=== PATIENT | female | born 1945 | race Two or more races ===

== ENCOUNTER 2021-05-01 12:41 | Inpatient (IN) | payer OTHER, MEDICAID ==
[~2021-05-01] VITALS: Ht 152.4 cm; Wt 50.8 kg
[2021-05-01] VITALS (7 sets, daily range): BP systolic 117–146; BP diastolic 66–95
[2021-05-01] MEDS ORDERED: REMDESIVIR PER PHARMACY 0 ML IV SCH ×2 (13:00→17:15)
[2021-05-01] MEDS ORDERED: ZINC SULFATE 220mg CAP or TAB PO ONE (13:00)
[2021-05-01] MEDS ORDERED: methylPREDNISolone SOD SUCC 125 MG/2 ML VL IV ONE (13:00)
[2021-05-01] MEDS ORDERED: CHOLECALCIFEROL (VITD3) 2,000 UNIT CAP/TAB PO ONE (13:00)
[2021-05-01] MEDS ORDERED: AZITHROMYCIN 500MG/ 250ML 250 ML IV ONE (13:00)
[2021-05-01] MEDS ORDERED: ASCORBIC ACID 500 MG TAB PO ONE (13:00)
[2021-05-01] MEDS ORDERED: LORazepam 2MG/ML-1ML VIAL IV ONE (13:45)
[2021-05-01 15:13] LABS: Hematocrit 44.5 % (36.0-46.0); Hemoglobin 14.5 g/dL (12.2-16.2); Mean Corpuscular Hemoglobin 30.7 pg (28.0-32.0); Mean Corpuscular Hgb Conc. 32.7 g/dL (32.0-36.0); Mean Corpuscular Volume 94.1 fL (80.0-100.0); Red Blood Cells 4.73 10^6/uL (4.0-5.20); Red Cell Distribution Width 13.8 % (11.8-14.3)
[2021-05-01 15:19] LABS: Basophils % (manual) 0 (0.0-2.0); Blast Cells 0; Eosinophils % (manual) 0 (0-7); Metamyelocytes % 0; Myelocytes % 0; Promyelocytes % 0; Reactive Lymphocytes 0
[2021-05-01 15:27] LABS: Lactic Acid w/Reflex 2.7 mmol/L (0.4-2.0)
[2021-05-01] MEDS ORDERED: FUROSEMIDE 40 MG/4 ML VIAL IV ONE (15:30)
[2021-05-01 15:51] LABS: Anion Gap 12 (5-15); Blood Urea Nitrogen 14 mg/dL (7-18); Carbon Dioxide 19 mmol/L (21-32); Chloride 103 mmol/L (98-107); Glucose 164 mg/dL (74-106); Potassium 4.1 mmol/L (3.5-5.1); Sodium 134 mmol/L (136-145)
[2021-05-01 15:53] LABS: Alanine Aminotransferase 32 U/L (13-56); Alkaline Phosphatase 84 U/L (45-117); Aspartate Aminotransferase 76 U/L (15-37); BUN/Creatinine Ratio 22.6; Bilirubin, Total 0.7 mg/dL (0.2-1.0); GFR African American 121 mL/min; GFR Non-African American 100 mL/min; Total Protein 7.4 g/dL (6.4-8.2)
[2021-05-01 15:54] LABS: Albumin 2.4 g/dL (3.4-5.0); Magnesium 2.4 mg/dL (1.6-2.6)
[2021-05-01] MEDS ORDERED: ENOXAPARIN SOD 100 MG/1 ML SYRINGE SC ONE (16:00)
[2021-05-01 16:37] LABS: Urine Bacteria NONE SEEN /hpf (None Seen); Urine Blood TRACE /uL (Negative); Urine Mucus FEW (None Seen); Urine Specific Gravity 1.022 (1.001-1.035); Urine WBC 8 /hpf (0 - 5)
[2021-05-01] MEDS ORDERED: HEPARIN SODIUM (PORCINE) 5000 UNITS/ML 1ML VIAL IV ONE (17:15)
[2021-05-01] MEDS ORDERED: DEXTROSE (50%) 50ML SYRG IV PRN (17:15)
[2021-05-01] MEDS ORDERED: NITROGLYCERIN 0.4 MG SL TAB SL PRN (17:15)
[2021-05-01] MEDS ORDERED: ACETAMINOPHEN 500 MG TAB PO PRN (17:15)
[2021-05-01] MEDS ORDERED: DOCUSATE SOD 100 MG CAP PO PRN (17:15)
[2021-05-01] MEDS ORDERED: HEPARIN DRIP/D5W 100UNITS/ML 250 ML IV SCH (17:15)
[2021-05-01] MEDS ORDERED: MORPHINE SULFATE INJECTION 2 MG/ML SYRG IV PRN (17:15)
[2021-05-01] MEDS ORDERED: ONDANSETRON HCL 4 MG/2 ML VIAL IV PRN (17:15)
[2021-05-01] MEDS: SODIUM CHLORIDE 0.9% 1,000 ML IV SCH (17:30)
[2021-05-01] MEDS ORDERED: REMDESIVIR 200 MG in NS 210ml LOADING DOSE ADULT IV ONE (17:30)
[2021-05-01 17:40] LABS: Band Neutrophils % (manual) 2; Lymphocytes % (manual) 18 (10.0-50.0); Monocytes % (manual) 5 (0-12)
[2021-05-01 18:22] LABS: INR 1.24 (0.9-1.15); Partial Thromboplastin Time 26.2 sec (23.6-33.0)
[2021-05-01 20:27] LABS: Magnesium 2.3 mg/dL (1.6-2.6)
[2021-05-01] MEDS: InsuLIN REG 1unit/0.01ml Soln (100units/ml) SC SCH (21:32)
[2021-05-01] MEDS: ACCU-CHEK COMFORT CURVE STRIP VI SCH (21:33)
[2021-05-01] MEDS: BUDESONIDE (INHALATION) 180 MCG IH IN SCH (22:28)
[2021-05-01] MEDS: ALBUTEROL SULF HFA 90MCG INH 200DOSE IN PRN (22:28)
[2021-05-02] VITALS (12 sets, daily range): BP systolic 111–130; BP diastolic 47–65
[2021-05-02 00:52] LABS: Basophils # (auto) 0 10 ^3/uL (0-0.2); Basophils % (auto) 0.3 % (0.0-2.0); Eosinophils # (auto) 0 10 ^3/uL (0-0.8); Hematocrit 41.8 % (36.0-46.0); Hemoglobin 13.7 g/dL (12.2-16.2); Lymphocytes # (auto) 0.6 10 ^3/uL (0.4-5.4); Lymphocytes % (auto) 12.9 % (10.0-50.0); Mean Corpuscular Hemoglobin 31.3 pg (28.0-32.0); Mean Corpuscular Hgb Conc. 32.9 g/dL (32.0-36.0); Mean Corpuscular Volume 95.3 fL (80.0-100.0); Monocytes # (auto) 0.4 10 ^3/uL (0-1.3); Monocytes % (auto) 7.9 % (0.0-12.0); Neutrophils # (auto) 3.9 10 ^3/uL (1.6-8.6); Neutrophils % (auto) 78.9 % (37.0-80.0); Nucleated Red Blood Cells % 2.3 %; Red Blood Cells 4.38 10^6/uL (4.0-5.20); Red Cell Distribution Width 13.8 % (11.8-14.3); White Blood Cell 4.9 10^3/uL (4.4-10.8)
[2021-05-02 01:04] LABS: INR 1.27 (0.9-1.15); Partial Thromboplastin Time 42.9 sec (23.6-33.0)
[2021-05-02] MEDS: InsuLIN REG 1unit/0.01ml Soln (100units/ml) SC SCH ×4 (06:43→22:18)
[2021-05-02] MEDS: ACCU-CHEK COMFORT CURVE STRIP VI SCH ×4 (06:44→22:18)
[2021-05-02 07:54] LABS: Basophils # (auto) 0 10 ^3/uL (0-0.2); Basophils % (auto) 0.2 % (0.0-2.0); Eosinophils # (auto) 0 10 ^3/uL (0-0.8); Hematocrit 41.1 % (36.0-46.0); Hemoglobin 13.7 g/dL (12.2-16.2); Lymphocytes # (auto) 0.9 10 ^3/uL (0.4-5.4); Lymphocytes % (auto) 15.8 % (10.0-50.0); Mean Corpuscular Hemoglobin 31.3 pg (28.0-32.0); Mean Corpuscular Hgb Conc. 33.3 g/dL (32.0-36.0); Monocytes # (auto) 0.4 10 ^3/uL (0-1.3); Monocytes % (auto) 7.6 % (0.0-12.0); Neutrophils # (auto) 4.4 10 ^3/uL (1.6-8.6); Neutrophils % (auto) 76.4 % (37.0-80.0); Red Blood Cells 4.37 10^6/uL (4.0-5.20); White Blood Cell 5.8 10^3/uL (4.4-10.8)
[2021-05-02 08:11] LABS: Albumin 2.2 g/dL (3.4-5.0); Calcium 7.3 mg/dL (8.5-10.1); Potassium 3.8 mmol/L (3.5-5.1)
[2021-05-02 08:12] LABS: INR 1.3 (0.9-1.15)
[2021-05-02 08:15] LABS: BUN/Creatinine Ratio 29.1; Bilirubin, Total 0.5 mg/dL (0.2-1.0)
[2021-05-02] MEDS: ALBUTEROL SULF HFA 90MCG INH 200DOSE IN PRN ×2 (09:43→18:33)
[2021-05-02] MEDS: BUDESONIDE (INHALATION) 180 MCG IH IN SCH ×2 (09:44→18:33)
[2021-05-02] MEDS: SODIUM CHLORIDE 0.9% 1,000 ML IV SCH (10:31)
[2021-05-02] MEDS: DexAMETHasone SOD PHOS 10MG/1ML VIAL INJ IV SCH (10:31)
[2021-05-02] MEDS: ASCORBIC ACID 1,000 MG TAB PO SCH (10:32)
[2021-05-02] MEDS: ZINC SULFATE 220mg CAP or TAB PO SCH (10:32)
[2021-05-02] MEDS: AZITHROMYCIN 500MG/ 250ML 250 ML IV SCH (10:32)
[2021-05-02] MEDS: CHOLECALCIFEROL (VITD3) 2,000 UNIT CAP/TAB PO SCH (10:32)
[2021-05-02] MEDS ORDERED: ENOXAPARIN SOD 100 MG/1 ML SYRINGE SC ONE (11:30)
[2021-05-02] MEDS ORDERED: FUROSEMIDE 40 MG/4 ML VIAL IV ONE (11:30)
[2021-05-02] MEDS ORDERED: ENOXAPARIN SOD 60 MG/0.6 ML SYRINGE SC ONE (11:45)
[2021-05-02 12:16] LABS: Thyroid Stimulating Hormone 0.36 uIU/mL (0.358-3.74)
[2021-05-02 12:29] LABS: Cholesterol 153 mg/dL (< 200)
[2021-05-02 12:30] LABS: HDL Cholesterol 39 mg/dL (40-59); LDL Cholesterol 94 mg/dL (< 100); Triglycerides 121 mg/dL (< 150)
[2021-05-02] MEDS: REMDESIVIR 100mg 100 MG in SODIUM CHL 0.9% 230 ML IV SCH (17:15)
[2021-05-02] MEDS: FUROSEMIDE 40 MG/4 ML VIAL IV SCH (18:16)
[2021-05-02] MEDS: ENOXAPARIN SOD 60 MG/0.6 ML SYRINGE SC SCH (22:18)
[2021-05-03 00:12] VITALS: BP 99/44
[2021-05-03] MEDS: ACETAMINOPHEN 325 MG TAB PO PRN (00:49)
[2021-05-03 02:18] VITALS: BP 112/52
[2021-05-03 04:04] VITALS: BP 111/39
[2021-05-03] MEDS: ACCU-CHEK COMFORT CURVE STRIP VI SCH ×4 (06:39→22:30)
[2021-05-03] MEDS: FUROSEMIDE 40 MG/4 ML VIAL IV SCH ×2 (06:40→17:54)
[2021-05-03] MEDS: InsuLIN REG 1unit/0.01ml Soln (100units/ml) SC SCH ×4 (06:40→22:38)
[2021-05-03 07:11] LABS: Potassium 3.3 mmol/L (3.5-5.1)
[2021-05-03 07:18] LABS: Albumin 2.6 g/dL (3.4-5.0); Bilirubin, Total 0.6 mg/dL (0.2-1.0); Calcium 7.8 mg/dL (8.5-10.1); Total Protein 6.5 g/dL (6.4-8.2)
[2021-05-03] MEDS ORDERED: POTASSIUM CHLORIDE 40 MEQ, LIDOCAINE 1% (LOCAL ANESTH.) 4 ML in SODIUM CHL 0.9% 250 ML IV ONE (08:30)
[2021-05-03] MEDS: ALBUTEROL SULF HFA 90MCG INH 200DOSE IN PRN ×2 (08:57→18:35)
[2021-05-03] MEDS: BUDESONIDE (INHALATION) 180 MCG IH IN SCH ×2 (08:57→18:35)
[2021-05-03] MEDS: DexAMETHasone SOD PHOS 10MG/1ML VIAL INJ IV SCH (10:23)
[2021-05-03] MEDS: ZINC SULFATE 220mg CAP or TAB PO SCH (10:24)
[2021-05-03] MEDS: ASCORBIC ACID 1,000 MG TAB PO SCH (10:24)
[2021-05-03] MEDS: ENOXAPARIN SOD 60 MG/0.6 ML SYRINGE SC SCH ×2 (10:25→22:38)
[2021-05-03] MEDS: CHOLECALCIFEROL (VITD3) 2,000 UNIT CAP/TAB PO SCH (10:25)
[2021-05-03] MEDS: AZITHROMYCIN 500MG/ 250ML 250 ML IV SCH (10:27)
[2021-05-03] MEDS: REMDESIVIR 100mg 100 MG in SODIUM CHL 0.9% 230 ML IV SCH (15:41)
[2021-05-04] MEDS: ACCU-CHEK COMFORT CURVE STRIP VI SCH ×4 (06:49→21:48)
[2021-05-04] MEDS: InsuLIN REG 1unit/0.01ml Soln (100units/ml) SC SCH ×4 (06:56→22:01)
[2021-05-04] MEDS: ALBUTEROL SULF HFA 90MCG INH 200DOSE IN PRN ×2 (07:03→23:09)
[2021-05-04] MEDS: BUDESONIDE (INHALATION) 180 MCG IH IN SCH ×2 (07:04→22:00)
[2021-05-04] MEDS: FUROSEMIDE 40 MG/4 ML VIAL IV SCH (07:04)
[2021-05-04 08:12] LABS: Eosinophils # (auto) 0 10 ^3/uL (0-0.8); Hemoglobin 17.9 g/dL (12.2-16.2); Nucleated Red Blood Cells % 0.4 %; White Blood Cell 8.7 10^3/uL (4.4-10.8)
[2021-05-04 08:14] LABS: Basophils # (auto) 0 10 ^3/uL (0-0.2); Basophils % (auto) 0.5 % (0.0-2.0); Eosinophils % (auto) 0.1 % (0.0-7.0); Hematocrit 53.6 % (36.0-46.0); Lymphocytes # (auto) 0.7 10 ^3/uL (0.4-5.4); Lymphocytes % (auto) 8.3 % (10.0-50.0); Mean Corpuscular Hemoglobin 31.4 pg (28.0-32.0); Mean Corpuscular Hgb Conc. 33.4 g/dL (32.0-36.0); Monocytes # (auto) 0.4 10 ^3/uL (0-1.3); Monocytes % (auto) 4.2 % (0.0-12.0); Neutrophils # (auto) 7.5 10 ^3/uL (1.6-8.6); Neutrophils % (auto) 86.9 % (37.0-80.0); Red Cell Distribution Width 14.1 % (11.8-14.3)
[2021-05-04 08:24] LABS: Albumin 2.9 g/dL (3.4-5.0); Magnesium 3.5 mg/dL (1.6-2.6); Potassium 3.8 mmol/L (3.5-5.1)
[2021-05-04 08:27] LABS: BUN/Creatinine Ratio 27.5; Total Protein 8.2 g/dL (6.4-8.2)
[2021-05-04 09:00] VITALS: BP 106/53
[2021-05-04] MEDS: ZINC SULFATE 220mg CAP or TAB PO SCH (10:00)
[2021-05-04] MEDS: ASCORBIC ACID 1,000 MG TAB PO SCH (10:00)
[2021-05-04] MEDS: CHOLECALCIFEROL (VITD3) 2,000 UNIT CAP/TAB PO SCH (10:00)
[2021-05-04] MEDS: AZITHROMYCIN 500MG/ 250ML 250 ML IV SCH (10:00)
[2021-05-04] MEDS: ENOXAPARIN SOD 60 MG/0.6 ML SYRINGE SC SCH ×2 (10:00→21:58)
[2021-05-04] MEDS: DexAMETHasone SOD PHOS 10MG/1ML VIAL INJ IV SCH (10:00)
[2021-05-04] MEDS: REMDESIVIR 100mg 100 MG in SODIUM CHL 0.9% 230 ML IV SCH (15:27)
[2021-05-04] MEDS ORDERED: CEFTRIAXONE SODIUM 2 GM in D5W 5% 50 ML IV ONE (15:30)
[2021-05-04] MEDS: FUROSEMIDE 20 MG/2 ML VIAL IV SCH (18:00)
[2021-05-05] MEDS: ACETAMINOPHEN 325 MG TAB PO PRN (01:50)
[2021-05-05] MEDS: FUROSEMIDE 20 MG/2 ML VIAL IV SCH ×2 (06:18→18:00)
[2021-05-05] MEDS: ACCU-CHEK COMFORT CURVE STRIP VI SCH ×4 (06:22→22:11)
[2021-05-05] MEDS: InsuLIN REG 1unit/0.01ml Soln (100units/ml) SC SCH ×4 (06:24→22:56)
[2021-05-05 06:31] LABS: Basophils # (auto) 0 10 ^3/uL (0-0.2); Eosinophils # (auto) 0 10 ^3/uL (0-0.8); Eosinophils % (auto) 0.1 % (0.0-7.0); Lymphocytes # (auto) 0.8 10 ^3/uL (0.4-5.4); Mean Corpuscular Hemoglobin 30.6 pg (28.0-32.0)
[2021-05-05 06:33] LABS: Basophils % (auto) 0.5 % (0.0-2.0); Hematocrit 52.5 % (36.0-46.0); Hemoglobin 17.1 g/dL (12.2-16.2); Lymphocytes % (auto) 10.1 % (10.0-50.0); Mean Corpuscular Hgb Conc. 32.5 g/dL (32.0-36.0); Monocytes # (auto) 0.5 10 ^3/uL (0-1.3); Monocytes % (auto) 7.2 % (0.0-12.0); Neutrophils # (auto) 6.2 10 ^3/uL (1.6-8.6); Neutrophils % (auto) 82.1 % (37.0-80.0); Nucleated Red Blood Cells % 0.1 %; Red Blood Cells 5.59 10^6/uL (4.0-5.20); Red Cell Distribution Width 14.4 % (11.8-14.3); White Blood Cell 7.5 10^3/uL (4.4-10.8)
[2021-05-05 06:49] LABS: Albumin 2.8 g/dL (3.4-5.0); Potassium 3.5 mmol/L (3.5-5.1)
[2021-05-05 06:53] LABS: BUN/Creatinine Ratio 33.7; Bilirubin, Total 0.6 mg/dL (0.2-1.0); Total Protein 7.3 g/dL (6.4-8.2)
[2021-05-05] MEDS: ALBUTEROL SULF HFA 90MCG INH 200DOSE IN PRN (06:56)
[2021-05-05] MEDS: BUDESONIDE (INHALATION) 180 MCG IH IN SCH ×2 (06:57→22:00)
[2021-05-05] MEDS: cefTRIAXone 1GM/50ML D5W 50 ML IV SCH (09:00)
[2021-05-05] MEDS: AZITHROMYCIN 500MG/ 250ML 250 ML IV SCH (10:00)
[2021-05-05] MEDS: ENOXAPARIN SOD 60 MG/0.6 ML SYRINGE SC SCH ×2 (10:00→22:12)
[2021-05-05] MEDS: ZINC SULFATE 220mg CAP or TAB PO SCH (10:00)
[2021-05-05] MEDS: CHOLECALCIFEROL (VITD3) 2,000 UNIT CAP/TAB PO SCH (10:00)
[2021-05-05] MEDS: DexAMETHasone SOD PHOS 10MG/1ML VIAL INJ IV SCH (10:00)
[2021-05-05] MEDS: ASCORBIC ACID 1,000 MG TAB PO SCH (10:00)
[2021-05-05 15:18] VITALS: BP 111/75
[2021-05-05] MEDS: REMDESIVIR 100mg 100 MG in SODIUM CHL 0.9% 230 ML IV SCH (16:00)
[2021-05-05 17:00] VITALS: BP 96/58
[2021-05-05] MEDS ORDERED: POTASSIUM CHL 20 Meq TABLET PO ONE (17:30)
[2021-05-05 20:00] VITALS: BP 96/60
[2021-05-05 22:50] VITALS: BP 96/60
[2021-05-06 05:19] VITALS: BP 105/64
[2021-05-06] MEDS: ACCU-CHEK COMFORT CURVE STRIP VI SCH ×4 (06:14→22:06)
[2021-05-06] MEDS: InsuLIN REG 1unit/0.01ml Soln (100units/ml) SC SCH ×4 (06:15→22:10)
[2021-05-06] MEDS: FUROSEMIDE 20 MG/2 ML VIAL IV SCH ×2 (06:30→18:00)
[2021-05-06 09:00] VITALS: BP 110/69
[2021-05-06] MEDS: BUDESONIDE (INHALATION) 180 MCG IH IN SCH ×2 (09:34→18:45)
[2021-05-06] MEDS: ALBUTEROL SULF HFA 90MCG INH 200DOSE IN PRN ×2 (09:34→19:57)
[2021-05-06] MEDS: cefTRIAXone 1GM/50ML D5W 50 ML IV SCH (10:17)
[2021-05-06] MEDS: AZITHROMYCIN 500MG/ 250ML 250 ML IV SCH (10:17)
[2021-05-06] MEDS: ZINC SULFATE 220mg CAP or TAB PO SCH (10:17)
[2021-05-06] MEDS: DexAMETHasone SOD PHOS 10MG/1ML VIAL INJ IV SCH (10:17)
[2021-05-06] MEDS: ASCORBIC ACID 1,000 MG TAB PO SCH (10:18)
[2021-05-06] MEDS: CHOLECALCIFEROL (VITD3) 2,000 UNIT CAP/TAB PO SCH (10:18)
[2021-05-06] MEDS: ENOXAPARIN SOD 60 MG/0.6 ML SYRINGE SC SCH ×2 (10:18→22:06)
[2021-05-06 13:00] VITALS: BP 103/68
[2021-05-06] MEDS ORDERED: ADENOSINE 6 MG/2 ML INJ IV ONE ×3 (14:00→18:09)
[2021-05-06 15:59] LABS: Potassium 3.7 mmol/L (3.5-5.1)
[2021-05-06 16:01] LABS: Magnesium 2.6 mg/dL (1.6-2.6)
[2021-05-06 16:05] LABS: BUN/Creatinine Ratio 26.2; Calcium 8.2 mg/dL (8.5-10.1); Magnesium 2.8 mg/dL (1.6-2.6); Potassium 3.5 mmol/L (3.5-5.1)
[2021-05-06 17:00] VITALS: BP 104/55
[2021-05-06 22:00] VITALS: BP 109/73
[2021-05-07] MEDS: ACETAMINOPHEN 325 MG TAB PO PRN ×2 (03:53→20:38)
[2021-05-07 05:00] VITALS: BP 124/76
[2021-05-07] MEDS: ACCU-CHEK COMFORT CURVE STRIP VI SCH ×4 (06:46→22:12)
[2021-05-07] MEDS: FUROSEMIDE 20 MG/2 ML VIAL IV SCH ×2 (06:47→17:11)
[2021-05-07] MEDS: InsuLIN REG 1unit/0.01ml Soln (100units/ml) SC SCH ×4 (06:47→22:10)
[2021-05-07 07:03] LABS: Potassium 3.7 mmol/L (3.5-5.1)
[2021-05-07 07:09] LABS: BUN/Creatinine Ratio 52.8; Calcium 8.8 mg/dL (8.5-10.1); Magnesium 2.8 mg/dL (1.6-2.6)
[2021-05-07 09:00] VITALS: BP 102/58
[2021-05-07] MEDS: ALBUTEROL SULF HFA 90MCG INH 200DOSE IN PRN (09:13)
[2021-05-07] MEDS: BUDESONIDE (INHALATION) 180 MCG IH IN SCH ×2 (09:13→22:11)
[2021-05-07] MEDS: ZINC SULFATE 220mg CAP or TAB PO SCH (10:13)
[2021-05-07] MEDS: CHOLECALCIFEROL (VITD3) 2,000 UNIT CAP/TAB PO SCH (10:13)
[2021-05-07] MEDS: ASCORBIC ACID 1,000 MG TAB PO SCH (10:13)
[2021-05-07] MEDS: DexAMETHasone SOD PHOS 10MG/1ML VIAL INJ IV SCH (10:13)
[2021-05-07] MEDS: ENOXAPARIN SOD 60 MG/0.6 ML SYRINGE SC SCH ×2 (10:14→22:11)
[2021-05-07] MEDS: cefTRIAXone 1GM/50ML D5W 50 ML IV SCH (10:26)
[2021-05-07] MEDS ORDERED: ADENOSINE 6 MG/2 ML INJ IV ONE (13:15)
[2021-05-07] MEDS ORDERED: AMIODARONE HCL 200 MG TAB PO ONE (14:30)
[2021-05-07 14:56] VITALS: BP 102/58
[2021-05-07 16:53] VITALS: BP 93/51
[2021-05-07 22:00] VITALS: BP 97/54
[2021-05-07] MEDS: AMIODARONE HCL 200 MG TAB PO SCH (22:12)
[2021-05-08] MEDS: ACCU-CHEK COMFORT CURVE STRIP VI SCH ×4 (06:36→21:13)
[2021-05-08] MEDS: InsuLIN REG 1unit/0.01ml Soln (100units/ml) SC SCH ×4 (06:38→21:16)
[2021-05-08] MEDS: FUROSEMIDE 20 MG/2 ML VIAL IV SCH ×2 (06:44→18:00)
[2021-05-08] MEDS: ALBUTEROL SULF HFA 90MCG INH 200DOSE IN PRN (06:53)
[2021-05-08] MEDS: BUDESONIDE (INHALATION) 180 MCG IH IN SCH ×2 (06:53→22:00)
[2021-05-08 09:00] VITALS: BP 98/48
[2021-05-08] MEDS: cefTRIAXone 1GM/50ML D5W 50 ML IV SCH (09:23)
[2021-05-08] MEDS: DexAMETHasone SOD PHOS 10MG/1ML VIAL INJ IV SCH (09:23)
[2021-05-08] MEDS: ASCORBIC ACID 1,000 MG TAB PO SCH (09:25)
[2021-05-08] MEDS: ZINC SULFATE 220mg CAP or TAB PO SCH (09:25)
[2021-05-08] MEDS: AMIODARONE HCL 200 MG TAB PO SCH ×2 (09:25→21:24)
[2021-05-08] MEDS: ENOXAPARIN SOD 60 MG/0.6 ML SYRINGE SC SCH ×2 (09:26→21:23)
[2021-05-08] MEDS: CHOLECALCIFEROL (VITD3) 2,000 UNIT CAP/TAB PO SCH (09:26)
[2021-05-08 13:00] VITALS: BP 97/41
[2021-05-08 17:00] VITALS: BP 97/47
[2021-05-08] MEDS ORDERED: POTASSIUM EFFERVESENT TAB 25 MEQ PO ONE (17:45)
[2021-05-08] MEDS: ACETAMINOPHEN 325 MG TAB PO PRN (21:24)
[2021-05-08 22:13] VITALS: BP 97/52
[2021-05-09] MEDS: ACETAMINOPHEN 325 MG TAB PO PRN ×3 (04:21→21:29)
[2021-05-09 05:18] VITALS: BP 96/59
[2021-05-09] MEDS: FUROSEMIDE 20 MG/2 ML VIAL IV SCH (06:00)
[2021-05-09] MEDS: ALBUTEROL SULF HFA 90MCG INH 200DOSE IN PRN ×2 (06:03→18:49)
[2021-05-09] MEDS: BUDESONIDE (INHALATION) 180 MCG IH IN SCH ×2 (06:03→18:48)
[2021-05-09 06:07] LABS: Basophils # (auto) 0 10 ^3/uL (0-0.2); Basophils % (auto) 0.2 % (0.0-2.0); Eosinophils # (auto) 0 10 ^3/uL (0-0.8); Eosinophils % (auto) 0.2 % (0.0-7.0); Hematocrit 43.2 % (36.0-46.0); Hemoglobin 14.1 g/dL (12.2-16.2); Lymphocytes # (auto) 0.6 10 ^3/uL (0.4-5.4); Lymphocytes % (auto) 8.9 % (10.0-50.0); Mean Corpuscular Hemoglobin 30.8 pg (28.0-32.0); Mean Corpuscular Hgb Conc. 32.7 g/dL (32.0-36.0); Monocytes # (auto) 0.6 10 ^3/uL (0-1.3); Monocytes % (auto) 8.4 % (0.0-12.0); Neutrophils # (auto) 5.5 10 ^3/uL (1.6-8.6); Neutrophils % (auto) 82.3 % (37.0-80.0); Nucleated Red Blood Cells % 0.1 %; Red Cell Distribution Width 13.9 % (11.8-14.3); White Blood Cell 6.7 10^3/uL (4.4-10.8)
[2021-05-09 06:26] LABS: Potassium 4.2 mmol/L (3.5-5.1)
[2021-05-09 06:34] LABS: Albumin 2.1 g/dL (3.4-5.0); BUN/Creatinine Ratio 43.9; Calcium 8.3 mg/dL (8.5-10.1)
[2021-05-09] MEDS: ACCU-CHEK COMFORT CURVE STRIP VI SCH ×4 (06:37→21:20)
[2021-05-09 06:38] LABS: Bilirubin, Total 0.5 mg/dL (0.2-1.0); Total Protein 5.4 g/dL (6.4-8.2)
[2021-05-09] MEDS: InsuLIN REG 1unit/0.01ml Soln (100units/ml) SC SCH ×4 (06:39→21:22)
[2021-05-09 08:00] VITALS: BP 117/57
[2021-05-09] MEDS: cefTRIAXone 1GM/50ML D5W 50 ML IV SCH (09:54)
[2021-05-09] MEDS: POTASSIUM EFFERVESENT TAB 25 MEQ PO SCH (09:55)
[2021-05-09] MEDS: ZINC SULFATE 220mg CAP or TAB PO SCH (09:55)
[2021-05-09] MEDS: DexAMETHasone SOD PHOS 10MG/1ML VIAL INJ IV SCH (09:55)
[2021-05-09] MEDS: AMIODARONE HCL 200 MG TAB PO SCH ×2 (09:55→21:03)
[2021-05-09] MEDS: CHOLECALCIFEROL (VITD3) 2,000 UNIT CAP/TAB PO SCH (09:56)
[2021-05-09] MEDS: ENOXAPARIN SOD 60 MG/0.6 ML SYRINGE SC SCH ×2 (09:56→21:03)
[2021-05-09] MEDS: ASCORBIC ACID 1,000 MG TAB PO SCH (09:56)
[2021-05-09 12:00] VITALS: BP 108/48
[2021-05-09 16:14] VITALS: BP 101/51
[2021-05-09 22:00] VITALS: BP 107/51
[2021-05-10] MEDS: MORPHINE SULFATE INJECTION 2 MG/ML SYRG IV PRN ×2 (01:04→15:44)
[2021-05-10] MEDS: ACETAMINOPHEN 325 MG TAB PO PRN (03:23)
[2021-05-10 05:00] VITALS: BP 102/37
[2021-05-10] MEDS: BUDESONIDE (INHALATION) 180 MCG IH IN SCH ×2 (05:27→18:00)
[2021-05-10] MEDS: ALBUTEROL SULF HFA 90MCG INH 200DOSE IN PRN ×2 (05:27→19:04)
[2021-05-10] MEDS: ACCU-CHEK COMFORT CURVE STRIP VI SCH ×4 (06:42→21:39)
[2021-05-10] MEDS: InsuLIN REG 1unit/0.01ml Soln (100units/ml) SC SCH ×4 (06:43→21:47)
[2021-05-10 09:00] VITALS: BP 101/47
[2021-05-10] MEDS: DexAMETHasone SOD PHOS 10MG/1ML VIAL INJ IV SCH (11:43)
[2021-05-10] MEDS: cefTRIAXone 1GM/50ML D5W 50 ML IV SCH (11:43)
[2021-05-10] MEDS: Glucerna Carbsteady SHAKE Vanilla 8oz PO SCH ×2 (11:43→18:31)
[2021-05-10] MEDS: AMIODARONE HCL 200 MG TAB PO SCH ×2 (11:44→21:39)
[2021-05-10] MEDS: ZINC SULFATE 220mg CAP or TAB PO SCH (11:44)
[2021-05-10] MEDS: FUROSEMIDE 20 MG/2 ML VIAL IV SCH (11:44)
[2021-05-10] MEDS: CHOLECALCIFEROL (VITD3) 2,000 UNIT CAP/TAB PO SCH (11:45)
[2021-05-10] MEDS: POTASSIUM EFFERVESENT TAB 25 MEQ PO SCH (11:45)
[2021-05-10] MEDS: ASCORBIC ACID 1,000 MG TAB PO SCH (11:45)
[2021-05-10] MEDS: ENOXAPARIN SOD 60 MG/0.6 ML SYRINGE SC SCH (11:45)
[2021-05-10 13:00] VITALS: BP 99/56
[2021-05-10 16:30] VITALS: BP 107/51
[2021-05-10 20:00] VITALS: BP 104/49
[2021-05-10] MEDS: APIXABAN 5 MG TAB PO SCH (21:39)
[2021-05-10] MEDS: HYDROcodone-ACET 5/325MG TAB PO PRN (21:40)
[2021-05-10] MEDS: INSULIN LANTUS (GLARGINE) 1 /0.01ml (100units/ml) SC SCH (21:47)
[2021-05-11 05:00] VITALS: BP 112/34
[2021-05-11] MEDS: ALBUTEROL SULF HFA 90MCG INH 200DOSE IN PRN ×2 (05:46→23:23)
[2021-05-11] MEDS: BUDESONIDE (INHALATION) 180 MCG IH IN SCH ×2 (05:46→22:00)
[2021-05-11] MEDS: ACCU-CHEK COMFORT CURVE STRIP VI SCH ×4 (06:25→22:00)
[2021-05-11] MEDS: ACETAMINOPHEN 325 MG TAB PO PRN ×2 (06:25→12:06)
[2021-05-11] MEDS: InsuLIN REG 1unit/0.01ml Soln (100units/ml) SC SCH ×4 (06:25→22:00)
[2021-05-11 08:51] VITALS: BP 104/39
[2021-05-11] MEDS: Glucerna Carbsteady SHAKE Vanilla 8oz PO SCH ×2 (09:50→18:22)
[2021-05-11] MEDS: DexAMETHasone SOD PHOS 10MG/1ML VIAL INJ IV SCH (09:51)
[2021-05-11] MEDS: cefTRIAXone 1GM/50ML D5W 50 ML IV SCH (09:51)
[2021-05-11] MEDS: FUROSEMIDE 20 MG/2 ML VIAL IV SCH (09:53)
[2021-05-11] MEDS: AMIODARONE HCL 200 MG TAB PO SCH ×2 (09:53→22:51)
[2021-05-11] MEDS: POTASSIUM EFFERVESENT TAB 25 MEQ PO SCH (09:53)
[2021-05-11] MEDS: ZINC SULFATE 220mg CAP or TAB PO SCH (09:53)
[2021-05-11] MEDS: APIXABAN 5 MG TAB PO SCH ×2 (09:53→22:51)
[2021-05-11] MEDS: CHOLECALCIFEROL (VITD3) 2,000 UNIT CAP/TAB PO SCH (09:54)
[2021-05-11] MEDS: ASCORBIC ACID 1,000 MG TAB PO SCH (09:54)
[2021-05-11] MEDS ORDERED: IOHEXOL 350 MG/ML 100ML IJ ONE (11:15)
[2021-05-11 13:20] VITALS: BP_SYST 105; BP_DIAS 35; BP_DIAS 36
[2021-05-11 16:23] VITALS: BP 121/40
[2021-05-11 22:00] VITALS: BP 144/45
[2021-05-11] MEDS: INSULIN LANTUS (GLARGINE) 1 /0.01ml (100units/ml) SC SCH (22:00)
[2021-05-12 05:00] VITALS: BP 105/51
[2021-05-12] MEDS: ACCU-CHEK COMFORT CURVE STRIP VI SCH ×4 (06:17→21:28)
[2021-05-12] MEDS: InsuLIN REG 1unit/0.01ml Soln (100units/ml) SC SCH ×4 (06:35→21:38)
[2021-05-12] MEDS: ALBUTEROL SULF HFA 90MCG INH 200DOSE IN PRN ×2 (07:09→18:53)
[2021-05-12] MEDS: BUDESONIDE (INHALATION) 180 MCG IH IN SCH ×2 (07:09→18:53)
[2021-05-12 07:25] LABS: Potassium 4.6 mmol/L (3.5-5.1)
[2021-05-12 07:32] LABS: Albumin 2.2 g/dL (3.4-5.0); BUN/Creatinine Ratio 55.6; Bilirubin, Total 0.5 mg/dL (0.2-1.0); CRP High Sensitivity 0.26 mg/dL (< 0.3); Total Protein 5.1 g/dL (6.4-8.2)
[2021-05-12] MEDS: Glucerna Carbsteady SHAKE Vanilla 8oz PO SCH ×2 (08:05→17:32)
[2021-05-12 08:15] VITALS: BP 91/42
[2021-05-12] MEDS: cefTRIAXone 1GM/50ML D5W 50 ML IV SCH (09:42)
[2021-05-12] MEDS: FUROSEMIDE 20 MG/2 ML VIAL IV SCH (10:00)
[2021-05-12] MEDS: AMIODARONE HCL 200 MG TAB PO SCH (10:00)
[2021-05-12] MEDS: APIXABAN 5 MG TAB PO SCH ×2 (10:03→21:28)
[2021-05-12] MEDS: DexAMETHasone SOD PHOS 10MG/1ML VIAL INJ IV SCH (10:03)
[2021-05-12] MEDS: ZINC SULFATE 220mg CAP or TAB PO SCH (10:03)
[2021-05-12] MEDS: POTASSIUM EFFERVESENT TAB 25 MEQ PO SCH (10:04)
[2021-05-12] MEDS: CHOLECALCIFEROL (VITD3) 2,000 UNIT CAP/TAB PO SCH (10:04)
[2021-05-12] MEDS: ASCORBIC ACID 1,000 MG TAB PO SCH (10:04)
[2021-05-12 17:28] VITALS: BP 101/42
[2021-05-12 20:23] VITALS: BP 91/42
[2021-05-12] MEDS: INSULIN LANTUS (GLARGINE) 1 /0.01ml (100units/ml) SC SCH (21:38)
[2021-05-12 22:00] VITALS: BP 94/42
[2021-05-13 05:00] VITALS: BP 95/40
[2021-05-13] MEDS: BUDESONIDE (INHALATION) 180 MCG IH IN SCH ×2 (06:12→18:51)
[2021-05-13] MEDS: ALBUTEROL SULF HFA 90MCG INH 200DOSE IN PRN ×2 (06:12→18:51)
[2021-05-13] MEDS: InsuLIN REG 1unit/0.01ml Soln (100units/ml) SC SCH ×4 (06:26→23:36)
[2021-05-13] MEDS: ACCU-CHEK COMFORT CURVE STRIP VI SCH ×4 (06:26→22:20)
[2021-05-13] MEDS: Glucerna Carbsteady SHAKE Vanilla 8oz PO SCH ×2 (08:01→17:57)
[2021-05-13 08:15] VITALS: BP 107/41
[2021-05-13] MEDS: cefTRIAXone 1GM/50ML D5W 50 ML IV SCH (08:32)
[2021-05-13 09:00] VITALS: BP 107/41
[2021-05-13] MEDS: FUROSEMIDE 20 MG/2 ML VIAL IV SCH (10:00)
[2021-05-13] MEDS: DexAMETHasone SOD PHOS 10MG/1ML VIAL INJ IV SCH (10:21)
[2021-05-13] MEDS: ASCORBIC ACID 1,000 MG TAB PO SCH (10:22)
[2021-05-13] MEDS: APIXABAN 5 MG TAB PO SCH ×2 (10:22→22:20)
[2021-05-13] MEDS: CHOLECALCIFEROL (VITD3) 2,000 UNIT CAP/TAB PO SCH (10:22)
[2021-05-13] MEDS: POTASSIUM EFFERVESENT TAB 25 MEQ PO SCH (10:22)
[2021-05-13] MEDS: ZINC SULFATE 220mg CAP or TAB PO SCH (10:22)
[2021-05-13] MEDS ORDERED: SODIUM CHLORIDE 0.9% 250 ML IV ONE (10:30)
[2021-05-13 13:00] VITALS: BP 91/44
[2021-05-13 17:00] VITALS: BP 98/38
[2021-05-13 22:00] VITALS: BP 92/41
[2021-05-13] MEDS: INSULIN LANTUS (GLARGINE) 1 /0.01ml (100units/ml) SC SCH (23:35)
[2021-05-14] VITALS (7 sets, daily range): BP systolic 88–108; BP diastolic 36–51
[2021-05-14] MEDS: BUDESONIDE (INHALATION) 180 MCG IH IN SCH ×2 (06:29→21:19)
[2021-05-14] MEDS: InsuLIN REG 1unit/0.01ml Soln (100units/ml) SC SCH ×4 (06:35→21:18)
[2021-05-14] MEDS: ACCU-CHEK COMFORT CURVE STRIP VI SCH ×4 (06:35→21:14)
[2021-05-14] MEDS: Glucerna Carbsteady SHAKE Vanilla 8oz PO SCH ×2 (07:49→17:40)
[2021-05-14] MEDS: cefTRIAXone 1GM/50ML D5W 50 ML IV SCH (09:31)
[2021-05-14] MEDS: FUROSEMIDE 20 MG/2 ML VIAL IV SCH (10:00)
[2021-05-14] MEDS: DexAMETHasone SOD PHOS 10MG/1ML VIAL INJ IV SCH (10:06)
[2021-05-14] MEDS: ASCORBIC ACID 1,000 MG TAB PO SCH (10:07)
[2021-05-14] MEDS: ZINC SULFATE 220mg CAP or TAB PO SCH (10:07)
[2021-05-14] MEDS: APIXABAN 5 MG TAB PO SCH ×2 (10:07→21:13)
[2021-05-14] MEDS: POTASSIUM EFFERVESENT TAB 25 MEQ PO SCH (10:07)
[2021-05-14] MEDS: CHOLECALCIFEROL (VITD3) 2,000 UNIT CAP/TAB PO SCH (10:07)
[2021-05-14] MEDS ORDERED: MIDODRINE HCL 10 MG TAB PO ONE (11:30)
[2021-05-14] MEDS: MIDODRINE HCL 10 MG TAB PO SCH (17:41)
[2021-05-14] MEDS ORDERED: SODIUM CHLORIDE 0.9% 250 ML IV ONE (18:00)
[2021-05-14] MEDS: HYDROcodone-ACET 5/325MG TAB PO PRN (21:14)
[2021-05-14] MEDS: ALBUTEROL SULF HFA 90MCG INH 200DOSE IN PRN (21:19)
[2021-05-14] MEDS: INSULIN LANTUS (GLARGINE) 1 /0.01ml (100units/ml) SC SCH (21:20)
[2021-05-15] VITALS (7 sets, daily range): BP systolic 91–104; BP diastolic 31–40
[2021-05-15] MEDS ORDERED: SODIUM CHLORIDE 0.9% 500 ML IV ONE (04:30)
[2021-05-15] MEDS: ALBUTEROL SULF HFA 90MCG INH 200DOSE IN PRN ×2 (06:05→21:54)
[2021-05-15] MEDS: BUDESONIDE (INHALATION) 180 MCG IH IN SCH ×2 (06:05→21:54)
[2021-05-15] MEDS: InsuLIN REG 1unit/0.01ml Soln (100units/ml) SC SCH ×4 (06:18→21:33)
[2021-05-15] MEDS: ACCU-CHEK COMFORT CURVE STRIP VI SCH ×4 (06:18→21:34)
[2021-05-15] MEDS: MIDODRINE HCL 10 MG TAB PO SCH ×3 (06:18→17:29)
[2021-05-15] MEDS: Glucerna Carbsteady SHAKE Vanilla 8oz PO SCH ×2 (08:15→17:28)
[2021-05-15] MEDS: cefTRIAXone 1GM/50ML D5W 50 ML IV SCH (08:44)
[2021-05-15] MEDS: FUROSEMIDE 20 MG/2 ML VIAL IV SCH (09:51)
[2021-05-15] MEDS: DexAMETHasone SOD PHOS 10MG/1ML VIAL INJ IV SCH (09:51)
[2021-05-15] MEDS: APIXABAN 5 MG TAB PO SCH ×2 (09:52→21:34)
[2021-05-15] MEDS: POTASSIUM EFFERVESENT TAB 25 MEQ PO SCH (09:52)
[2021-05-15] MEDS: ASCORBIC ACID 1,000 MG TAB PO SCH (09:52)
[2021-05-15] MEDS: ZINC SULFATE 220mg CAP or TAB PO SCH (09:52)
[2021-05-15] MEDS: CHOLECALCIFEROL (VITD3) 2,000 UNIT CAP/TAB PO SCH (09:53)
[2021-05-15] MEDS: INSULIN LANTUS (GLARGINE) 1 /0.01ml (100units/ml) SC SCH (21:34)
[2021-05-16 05:00] VITALS: BP 99/36
[2021-05-16] MEDS: MIDODRINE HCL 10 MG TAB PO SCH ×3 (06:06→17:43)
[2021-05-16] MEDS: ACCU-CHEK COMFORT CURVE STRIP VI SCH ×4 (06:24→21:59)
[2021-05-16] MEDS: InsuLIN REG 1unit/0.01ml Soln (100units/ml) SC SCH ×4 (06:25→22:09)
[2021-05-16] MEDS: ALBUTEROL SULF HFA 90MCG INH 200DOSE IN PRN ×2 (06:36→23:11)
[2021-05-16] MEDS: BUDESONIDE (INHALATION) 180 MCG IH IN SCH ×2 (06:36→23:11)
[2021-05-16 06:49] LABS: Potassium 4.4 mmol/L (3.5-5.1)
[2021-05-16 07:00] LABS: Albumin 2.3 g/dL (3.4-5.0); BUN/Creatinine Ratio 27.7; Bilirubin, Total 0.4 mg/dL (0.2-1.0); Calcium 8.2 mg/dL (8.5-10.1); Total Protein 5.6 g/dL (6.4-8.2)
[2021-05-16 07:20] LABS: Basophils # (auto) 0 10 ^3/uL (0-0.2); Basophils % (auto) 0.2 % (0.0-2.0); Eosinophils # (auto) 0 10 ^3/uL (0-0.8); Eosinophils % (auto) 0.2 % (0.0-7.0); Hematocrit 34.2 % (36.0-46.0); Lymphocytes % (auto) 12.2 % (10.0-50.0); Mean Corpuscular Hemoglobin 30.8 pg (28.0-32.0); Mean Corpuscular Hgb Conc. 32.2 g/dL (32.0-36.0); Mean Corpuscular Volume 95.8 fL (80.0-100.0); Monocytes # (auto) 0.9 10 ^3/uL (0-1.3); Monocytes % (auto) 5.7 % (0.0-12.0); Neutrophils # (auto) 13.2 10 ^3/uL (1.6-8.6); Neutrophils % (auto) 81.7 % (37.0-80.0); Nucleated Red Blood Cells % 0.1 %; Red Blood Cells 3.57 10^6/uL (4.0-5.20); Red Cell Distribution Width 14.3 % (11.8-14.3); White Blood Cell 16.2 10^3/uL (4.4-10.8)
[2021-05-16] MEDS: cefTRIAXone 1GM/50ML D5W 50 ML IV SCH ×2 (08:21→09:32)
[2021-05-16 09:00] VITALS: BP 115/58
[2021-05-16] MEDS: ZINC SULFATE 220mg CAP or TAB PO SCH (09:13)
[2021-05-16] MEDS: ASCORBIC ACID 1,000 MG TAB PO SCH (09:13)
[2021-05-16] MEDS: APIXABAN 5 MG TAB PO SCH ×2 (09:13→21:59)
[2021-05-16] MEDS: POTASSIUM EFFERVESENT TAB 25 MEQ PO SCH (09:13)
[2021-05-16] MEDS: CHOLECALCIFEROL (VITD3) 2,000 UNIT CAP/TAB PO SCH (09:14)
[2021-05-16] MEDS: FUROSEMIDE 20 MG/2 ML VIAL IV SCH ×2 (09:31→10:50)
[2021-05-16] MEDS: ACETAMINOPHEN 325 MG TAB PO PRN ×2 (09:34→17:55)
[2021-05-16] MEDS: DexAMETHasone SOD PHOS 10MG/1ML VIAL INJ IV SCH (09:35)
[2021-05-16] MEDS: Glucerna Carbsteady SHAKE Vanilla 8oz PO SCH ×2 (12:06→18:42)
[2021-05-16 13:00] VITALS: BP 108/36
[2021-05-16 16:40] VITALS: BP 106/31
[2021-05-16 21:46] VITALS: BP 99/35
[2021-05-16] MEDS: INSULIN LANTUS (GLARGINE) 1 /0.01ml (100units/ml) SC SCH (22:05)
[2021-05-17] VITALS (9 sets, daily range): BP systolic 75–110; BP diastolic 28–62
[2021-05-17] MEDS: ALBUTEROL SULF HFA 90MCG INH 200DOSE IN PRN (05:25)
[2021-05-17] MEDS: BUDESONIDE (INHALATION) 180 MCG IH IN SCH ×2 (05:25→22:00)
[2021-05-17] MEDS: MIDODRINE HCL 10 MG TAB PO SCH ×3 (06:23→17:31)
[2021-05-17] MEDS: InsuLIN REG 1unit/0.01ml Soln (100units/ml) SC SCH ×4 (06:40→22:11)
[2021-05-17] MEDS: ACCU-CHEK COMFORT CURVE STRIP VI SCH ×4 (06:40→22:04)
[2021-05-17 06:58] LABS: Hematocrit 29.8 % (36.0-46.0); Hemoglobin 10.1 g/dL (12.2-16.2); Mean Corpuscular Hemoglobin 32.2 pg (28.0-32.0); Mean Corpuscular Volume 94.8 fL (80.0-100.0); Red Blood Cells 3.14 10^6/uL (4.0-5.20); Red Cell Distribution Width 14.8 % (11.8-14.3); White Blood Cell 11.2 10^3/uL (4.4-10.8)
[2021-05-17 07:06] LABS: Band Neutrophils % (manual) 0; Basophils % (manual) 0 (0.0-2.0); Blast Cells 0; Eosinophils % (manual) 0 (0-7); Metamyelocytes % 0; Myelocytes % 0; Promyelocytes % 0; Reactive Lymphocytes 0
[2021-05-17 07:14] LABS: BUN/Creatinine Ratio 28.3; Potassium 4.4 mmol/L (3.5-5.1)
[2021-05-17] MEDS: Glucerna Carbsteady SHAKE Vanilla 8oz PO SCH ×2 (08:00→18:18)
[2021-05-17 08:28] LABS: Lymphocytes % (manual) 13 (10.0-50.0); Monocytes % (manual) 2 (0-12)
[2021-05-17] MEDS: cefTRIAXone 1GM/50ML D5W 50 ML IV SCH ×3 (09:11→11:39)
[2021-05-17] MEDS: FUROSEMIDE 20 MG/2 ML VIAL IV SCH (10:00)
[2021-05-17] MEDS: DexAMETHasone SOD PHOS 10MG/1ML VIAL INJ IV SCH (10:23)
[2021-05-17] MEDS: ZINC SULFATE 220mg CAP or TAB PO SCH (10:28)
[2021-05-17] MEDS: APIXABAN 5 MG TAB PO SCH ×2 (10:28→22:03)
[2021-05-17] MEDS: POTASSIUM EFFERVESENT TAB 25 MEQ PO SCH (10:29)
[2021-05-17] MEDS: ASCORBIC ACID 1,000 MG TAB PO SCH (10:29)
[2021-05-17] MEDS: CHOLECALCIFEROL (VITD3) 2,000 UNIT CAP/TAB PO SCH (10:29)
[2021-05-17] MEDS: LORazepam 0.5 MG TAB PO PRN (20:06)
[2021-05-17] MEDS: INSULIN LANTUS (GLARGINE) 1 /0.01ml (100units/ml) SC SCH (22:18)
[2021-05-18 05:00] VITALS: BP 102/54
[2021-05-18] MEDS: ALBUTEROL SULF HFA 90MCG INH 200DOSE IN PRN ×2 (05:57→22:10)
[2021-05-18] MEDS: BUDESONIDE (INHALATION) 180 MCG IH IN SCH ×2 (05:57→22:10)
[2021-05-18] MEDS: MIDODRINE HCL 10 MG TAB PO SCH ×3 (06:12→16:24)
[2021-05-18] MEDS: ACCU-CHEK COMFORT CURVE STRIP VI SCH ×4 (06:33→22:00)
[2021-05-18] MEDS: InsuLIN REG 1unit/0.01ml Soln (100units/ml) SC SCH ×4 (06:34→22:17)
[2021-05-18 08:30] VITALS: BP 111/42
[2021-05-18] MEDS: cefTRIAXone 1GM/50ML D5W 50 ML IV SCH (09:41)
[2021-05-18] MEDS: ASCORBIC ACID 1,000 MG TAB PO SCH (09:41)
[2021-05-18] MEDS: DexAMETHasone SOD PHOS 10MG/1ML VIAL INJ IV SCH (09:41)
[2021-05-18] MEDS: ZINC SULFATE 220mg CAP or TAB PO SCH (09:41)
[2021-05-18] MEDS: APIXABAN 5 MG TAB PO SCH ×2 (09:41→22:00)
[2021-05-18] MEDS: POTASSIUM EFFERVESENT TAB 25 MEQ PO SCH (09:41)
[2021-05-18] MEDS: CHOLECALCIFEROL (VITD3) 2,000 UNIT CAP/TAB PO SCH (09:42)
[2021-05-18] MEDS: FUROSEMIDE 20 MG/2 ML VIAL IV SCH (09:50)
[2021-05-18] MEDS: Glucerna Carbsteady SHAKE Vanilla 8oz PO SCH ×2 (09:52→16:24)
[2021-05-18 11:51] LABS: Basophils # (auto) 0.1 10 ^3/uL (0-0.2); Basophils % (auto) 0.5 % (0.0-2.0); Eosinophils # (auto) 0 10 ^3/uL (0-0.8); Eosinophils % (auto) 0.3 % (0.0-7.0); Hematocrit 30.8 % (36.0-46.0); Hemoglobin 10.1 g/dL (12.2-16.2); Lymphocytes # (auto) 0.7 10 ^3/uL (0.4-5.4); Lymphocytes % (auto) 4.5 % (10.0-50.0); Mean Corpuscular Hemoglobin 31.4 pg (28.0-32.0); Mean Corpuscular Hgb Conc. 32.9 g/dL (32.0-36.0); Mean Corpuscular Volume 95.5 fL (80.0-100.0); Monocytes # (auto) 0.6 10 ^3/uL (0-1.3); Monocytes % (auto) 3.8 % (0.0-12.0); Neutrophils # (auto) 13.3 10 ^3/uL (1.6-8.6); Neutrophils % (auto) 90.9 % (37.0-80.0); Nucleated Red Blood Cells % 0.1 %; Red Blood Cells 3.22 10^6/uL (4.0-5.20); Red Cell Distribution Width 15.5 % (11.8-14.3); White Blood Cell 14.6 10^3/uL (4.4-10.8)
[2021-05-18 12:17] LABS: Calcium 7.7 mg/dL (8.5-10.1); Potassium 4.3 mmol/L (3.5-5.1)
[2021-05-18 12:19] LABS: BUN/Creatinine Ratio 39.5
[2021-05-18 13:00] VITALS: BP 98/34
[2021-05-18] MEDS: ACETAMINOPHEN 325 MG TAB PO PRN (15:56)
[2021-05-18 16:34] VITALS: BP 99/43
[2021-05-18] MEDS ORDERED: DOPamine 1600MCG/ML D5W 250 ML IV SCH ×2 (18:00→18:30)
[2021-05-18] MEDS ORDERED: DOPamine 1600MCG/ML D5W 250 ML IV ONE (18:01)
[2021-05-18 22:00] VITALS: BP 111/43
[2021-05-18] MEDS: LORazepam 0.5 MG TAB PO PRN (22:00)
[2021-05-18] MEDS: INSULIN LANTUS (GLARGINE) 1 /0.01ml (100units/ml) SC SCH (22:18)
[2021-05-19 05:00] VITALS: BP 118/59
[2021-05-19] MEDS: ACCU-CHEK COMFORT CURVE STRIP VI SCH ×4 (06:29→22:18)
[2021-05-19] MEDS: InsuLIN REG 1unit/0.01ml Soln (100units/ml) SC SCH ×4 (06:29→22:22)
[2021-05-19 06:59] LABS: Potassium 4.3 mmol/L (3.5-5.1)
[2021-05-19 07:02] LABS: BUN/Creatinine Ratio 24.5
[2021-05-19 07:40] LABS: Basophils # (auto) 0.1 10 ^3/uL (0-0.2); Basophils % (auto) 0.7 % (0.0-2.0); Eosinophils # (auto) 0 10 ^3/uL (0-0.8); Eosinophils % (auto) 0.1 % (0.0-7.0); Hematocrit 35.7 % (36.0-46.0); Hemoglobin 11.9 g/dL (12.2-16.2); Lymphocytes # (auto) 0.9 10 ^3/uL (0.4-5.4); Lymphocytes % (auto) 8.8 % (10.0-50.0); Mean Corpuscular Hemoglobin 31.6 pg (28.0-32.0); Mean Corpuscular Hgb Conc. 33.4 g/dL (32.0-36.0); Mean Corpuscular Volume 94.7 fL (80.0-100.0); Monocytes # (auto) 0.5 10 ^3/uL (0-1.3); Monocytes % (auto) 4.4 % (0.0-12.0); Neutrophils # (auto) 8.9 10 ^3/uL (1.6-8.6); Nucleated Red Blood Cells % 0.4 %; Red Blood Cells 3.77 10^6/uL (4.0-5.20); Red Cell Distribution Width 14.9 % (11.8-14.3); White Blood Cell 10.4 10^3/uL (4.4-10.8)
[2021-05-19 08:30] VITALS: BP 94/32
[2021-05-19] MEDS: cefTRIAXone 1GM/50ML D5W 50 ML IV SCH (09:24)
[2021-05-19] MEDS: Glucerna Carbsteady SHAKE Vanilla 8oz PO SCH ×2 (09:24→16:48)
[2021-05-19] MEDS: DexAMETHasone SOD PHOS 10MG/1ML VIAL INJ IV SCH (09:24)
[2021-05-19] MEDS: POTASSIUM EFFERVESENT TAB 25 MEQ PO SCH (09:25)
[2021-05-19] MEDS: APIXABAN 5 MG TAB PO SCH ×2 (09:25→22:39)
[2021-05-19] MEDS: CHOLECALCIFEROL (VITD3) 2,000 UNIT CAP/TAB PO SCH (09:26)
[2021-05-19] MEDS: FUROSEMIDE 20 MG/2 ML VIAL IV SCH (09:26)
[2021-05-19] MEDS: ASCORBIC ACID 1,000 MG TAB PO SCH (09:26)
[2021-05-19] MEDS: ZINC SULFATE 220mg CAP or TAB PO SCH (09:26)
[2021-05-19] MEDS: ACETAMINOPHEN 325 MG TAB PO PRN ×2 (09:27→19:42)
[2021-05-19 12:30] VITALS: BP 104/44
[2021-05-19 16:42] VITALS: BP 114/50
[2021-05-19] MEDS ORDERED: ALBUTEROL SULF 2.5 MG/0.5ML(0.5%) NEB SOLN NEB ONE (17:30)
[2021-05-19] MEDS: DOPamine 1600MCG/ML D5W 250 ML IV SCH (17:43)
[2021-05-19] MEDS: BUDESONIDE (INHALATION) 180 MCG IH IN SCH (18:18)
[2021-05-19 21:28] VITALS: BP 112/54
[2021-05-19] MEDS: INSULIN LANTUS (GLARGINE) 1 /0.01ml (100units/ml) SC SCH (22:23)
[2021-05-20 04:08] VITALS: BP 130/59
[2021-05-20 05:30] LABS: Basophils # (auto) 0 10 ^3/uL (0-0.2); Basophils % (auto) 0.4 % (0.0-2.0); Eosinophils # (auto) 0 10 ^3/uL (0-0.8); Eosinophils % (auto) 0.2 % (0.0-7.0); Hematocrit 36.9 % (36.0-46.0); Hemoglobin 12.2 g/dL (12.2-16.2); Lymphocytes # (auto) 0.9 10 ^3/uL (0.4-5.4); Lymphocytes % (auto) 7.4 % (10.0-50.0); Mean Corpuscular Hemoglobin 31.7 pg (28.0-32.0); Mean Corpuscular Hgb Conc. 33.1 g/dL (32.0-36.0); Mean Corpuscular Volume 95.6 fL (80.0-100.0); Monocytes # (auto) 0.7 10 ^3/uL (0-1.3); Monocytes % (auto) 5.7 % (0.0-12.0); Neutrophils # (auto) 10.7 10 ^3/uL (1.6-8.6); Neutrophils % (auto) 86.3 % (37.0-80.0); Nucleated Red Blood Cells % 0.1 %; Red Blood Cells 3.86 10^6/uL (4.0-5.20); White Blood Cell 12.4 10^3/uL (4.4-10.8)
[2021-05-20 05:50] LABS: Calcium 9.2 mg/dL (8.5-10.1); Potassium 4.7 mmol/L (3.5-5.1)
[2021-05-20 05:53] LABS: BUN/Creatinine Ratio 31.5
[2021-05-20] MEDS: ALBUTEROL SULF HFA 90MCG INH 200DOSE IN PRN (06:26)
[2021-05-20] MEDS: BUDESONIDE (INHALATION) 180 MCG IH IN SCH ×2 (06:26→22:05)
[2021-05-20] MEDS: ACCU-CHEK COMFORT CURVE STRIP VI SCH ×4 (06:31→20:59)
[2021-05-20] MEDS: InsuLIN REG 1unit/0.01ml Soln (100units/ml) SC SCH ×4 (06:31→21:07)
[2021-05-20] MEDS: Glucerna Carbsteady SHAKE Vanilla 8oz PO SCH ×2 (08:00→17:57)
[2021-05-20 09:00] VITALS: BP 92/48
[2021-05-20] MEDS: FUROSEMIDE 20 MG/2 ML VIAL IV SCH (10:00)
[2021-05-20] MEDS: cefTRIAXone 1GM/50ML D5W 50 ML IV SCH (10:11)
[2021-05-20] MEDS: DexAMETHasone SOD PHOS 10MG/1ML VIAL INJ IV SCH (10:14)
[2021-05-20] MEDS: ZINC SULFATE 220mg CAP or TAB PO SCH (10:15)
[2021-05-20] MEDS: APIXABAN 5 MG TAB PO SCH ×2 (10:16→21:01)
[2021-05-20] MEDS: CHOLECALCIFEROL (VITD3) 2,000 UNIT CAP/TAB PO SCH (10:17)
[2021-05-20] MEDS: ASCORBIC ACID 1,000 MG TAB PO SCH (10:17)
[2021-05-20] MEDS: POTASSIUM EFFERVESENT TAB 25 MEQ PO SCH (10:18)
[2021-05-20] MEDS: DOPamine 1600MCG/ML D5W 250 ML IV SCH (10:24)
[2021-05-20 13:00] VITALS: BP 104/53
[2021-05-20 16:53] VITALS: BP 113/47
[2021-05-20] MEDS: INSULIN LANTUS (GLARGINE) 1 /0.01ml (100units/ml) SC SCH (21:10)
[2021-05-20 22:00] VITALS: BP 117/49
[2021-05-21] MEDS: DOPamine 1600MCG/ML D5W 250 ML IV SCH ×2 (01:45→17:34)
[2021-05-21 05:00] VITALS: BP 119/62
[2021-05-21] MEDS: BUDESONIDE (INHALATION) 180 MCG IH IN SCH ×2 (05:37→05:42)
[2021-05-21] MEDS: ALBUTEROL SULF HFA 90MCG INH 200DOSE IN PRN ×3 (05:37→20:09)
[2021-05-21] MEDS: ACCU-CHEK COMFORT CURVE STRIP VI SCH ×4 (06:03→21:06)
[2021-05-21] MEDS: InsuLIN REG 1unit/0.01ml Soln (100units/ml) SC SCH ×4 (06:04→21:12)
[2021-05-21 06:27] LABS: Basophils # (auto) 0.1 10 ^3/uL (0-0.2); Basophils % (auto) 0.5 % (0.0-2.0); Eosinophils # (auto) 0 10 ^3/uL (0-0.8); Eosinophils % (auto) 0.2 % (0.0-7.0); Hematocrit 35.1 % (36.0-46.0); Hemoglobin 11.8 g/dL (12.2-16.2); Lymphocytes # (auto) 0.8 10 ^3/uL (0.4-5.4); Lymphocytes % (auto) 7.5 % (10.0-50.0); Mean Corpuscular Hemoglobin 31.5 pg (28.0-32.0); Mean Corpuscular Hgb Conc. 33.5 g/dL (32.0-36.0); Mean Corpuscular Volume 93.8 fL (80.0-100.0); Monocytes # (auto) 0.5 10 ^3/uL (0-1.3); Neutrophils # (auto) 8.8 10 ^3/uL (1.6-8.6); Neutrophils % (auto) 86.8 % (37.0-80.0); Nucleated Red Blood Cells % 0.1 %; Red Blood Cells 3.74 10^6/uL (4.0-5.20); Red Cell Distribution Width 15.3 % (11.8-14.3); White Blood Cell 10.2 10^3/uL (4.4-10.8)
[2021-05-21 06:48] LABS: Calcium 8.5 mg/dL (8.5-10.1)
[2021-05-21] MEDS: Glucerna Carbsteady SHAKE Vanilla 8oz PO SCH ×2 (08:00→17:34)
[2021-05-21 09:00] VITALS: BP 118/46
[2021-05-21] MEDS: DexAMETHasone SOD PHOS 10MG/1ML VIAL INJ IV SCH (10:53)
[2021-05-21] MEDS: cefTRIAXone 1GM/50ML D5W 50 ML IV SCH (10:53)
[2021-05-21] MEDS: FUROSEMIDE 20 MG/2 ML VIAL IV SCH (10:53)
[2021-05-21] MEDS: ZINC SULFATE 220mg CAP or TAB PO SCH (10:54)
[2021-05-21] MEDS: APIXABAN 5 MG TAB PO SCH ×2 (10:55→21:08)
[2021-05-21] MEDS: CHOLECALCIFEROL (VITD3) 2,000 UNIT CAP/TAB PO SCH (10:59)
[2021-05-21] MEDS: POTASSIUM EFFERVESENT TAB 25 MEQ PO SCH (10:59)
[2021-05-21] MEDS: ASCORBIC ACID 1,000 MG TAB PO SCH (10:59)
[2021-05-21 13:00] VITALS: BP 106/55
[2021-05-21 17:00] VITALS: BP 114/61
[2021-05-21] MEDS: INSULIN LANTUS (GLARGINE) 1 /0.01ml (100units/ml) SC SCH (21:16)
[2021-05-21 22:00] VITALS: BP 119/65
[2021-05-22 05:00] VITALS: BP 124/66
[2021-05-22] MEDS: ACCU-CHEK COMFORT CURVE STRIP VI SCH ×4 (05:40→21:03)
[2021-05-22] MEDS: InsuLIN REG 1unit/0.01ml Soln (100units/ml) SC SCH ×4 (05:52→20:59)
[2021-05-22] MEDS: BUDESONIDE (INHALATION) 180 MCG IH IN SCH ×2 (06:22→21:27)
[2021-05-22 06:54] LABS: Basophils # (auto) 0 10 ^3/uL (0-0.2); Basophils % (auto) 0.2 % (0.0-2.0); Eosinophils # (auto) 0 10 ^3/uL (0-0.8); Eosinophils % (auto) 0.2 % (0.0-7.0); Hematocrit 36.2 % (36.0-46.0); Lymphocytes # (auto) 0.7 10 ^3/uL (0.4-5.4); Lymphocytes % (auto) 9.1 % (10.0-50.0); Mean Corpuscular Hemoglobin 31.6 pg (28.0-32.0); Mean Corpuscular Hgb Conc. 33.1 g/dL (32.0-36.0); Mean Corpuscular Volume 95.4 fL (80.0-100.0); Monocytes # (auto) 0.4 10 ^3/uL (0-1.3); Neutrophils # (auto) 6.2 10 ^3/uL (1.6-8.6); Neutrophils % (auto) 84.5 % (37.0-80.0); White Blood Cell 7.3 10^3/uL (4.4-10.8)
[2021-05-22 07:10] LABS: Calcium 8.1 mg/dL (8.5-10.1)
[2021-05-22 07:11] LABS: BUN/Creatinine Ratio 42.9
[2021-05-22] MEDS: Glucerna Carbsteady SHAKE Vanilla 8oz PO SCH ×2 (08:15→18:00)
[2021-05-22 09:00] VITALS: BP 90/47
[2021-05-22] MEDS: DexAMETHasone SOD PHOS 10MG/1ML VIAL INJ IV SCH (10:00)
[2021-05-22] MEDS: FUROSEMIDE 20 MG/2 ML VIAL IV SCH (10:00)
[2021-05-22] MEDS: POTASSIUM EFFERVESENT TAB 25 MEQ PO SCH (10:44)
[2021-05-22] MEDS: APIXABAN 5 MG TAB PO SCH ×2 (10:45→21:03)
[2021-05-22] MEDS: CHOLECALCIFEROL (VITD3) 2,000 UNIT CAP/TAB PO SCH (10:45)
[2021-05-22] MEDS: ZINC SULFATE 220mg CAP or TAB PO SCH (10:45)
[2021-05-22] MEDS: ASCORBIC ACID 1,000 MG TAB PO SCH (10:45)
[2021-05-22] MEDS: cefTRIAXone 1GM/50ML D5W 50 ML IV SCH (10:51)
[2021-05-22] MEDS: DOPamine 1600MCG/ML D5W 250 ML IV SCH (12:21)
[2021-05-22 13:00] VITALS: BP 125/59
[2021-05-22 17:00] VITALS: BP 94/49
[2021-05-22 20:00] VITALS: BP 93/52
[2021-05-22] MEDS: INSULIN LANTUS (GLARGINE) 1 /0.01ml (100units/ml) SC SCH (20:59)
[2021-05-22] MEDS: ALBUTEROL SULF HFA 90MCG INH 200DOSE IN PRN (21:28)
[2021-05-22 22:00] VITALS: BP 93/52
[2021-05-23] MEDS: DOPamine 1600MCG/ML D5W 250 ML IV SCH ×2 (04:00→16:06)
[2021-05-23 05:00] VITALS: BP 138/77
[2021-05-23] MEDS: BUDESONIDE (INHALATION) 180 MCG IH IN SCH ×2 (06:03→20:26)
[2021-05-23] MEDS: ALBUTEROL SULF HFA 90MCG INH 200DOSE IN PRN ×2 (06:03→20:26)
[2021-05-23] MEDS: InsuLIN REG 1unit/0.01ml Soln (100units/ml) SC SCH ×4 (06:14→21:15)
[2021-05-23] MEDS: ACCU-CHEK COMFORT CURVE STRIP VI SCH ×4 (06:14→21:12)
[2021-05-23 09:00] VITALS: BP 120/62
[2021-05-23] MEDS: Glucerna Carbsteady SHAKE Vanilla 8oz PO SCH ×2 (09:13→17:18)
[2021-05-23] MEDS: cefTRIAXone 1GM/50ML D5W 50 ML IV SCH (09:13)
[2021-05-23] MEDS: DexAMETHasone SOD PHOS 10MG/1ML VIAL INJ IV SCH (09:13)
[2021-05-23] MEDS: FUROSEMIDE 20 MG/2 ML VIAL IV SCH (09:14)
[2021-05-23] MEDS: APIXABAN 5 MG TAB PO SCH ×2 (09:14→21:16)
[2021-05-23] MEDS: ZINC SULFATE 220mg CAP or TAB PO SCH (09:14)
[2021-05-23] MEDS: ASCORBIC ACID 1,000 MG TAB PO SCH (09:15)
[2021-05-23] MEDS: CHOLECALCIFEROL (VITD3) 2,000 UNIT CAP/TAB PO SCH (09:15)
[2021-05-23] MEDS: POTASSIUM EFFERVESENT TAB 25 MEQ PO SCH (09:15)
[2021-05-23 13:00] VITALS: BP 123/71
[2021-05-23 17:00] VITALS: BP 133/69
[2021-05-23] MEDS: INSULIN LANTUS (GLARGINE) 1 /0.01ml (100units/ml) SC SCH (21:14)
[2021-05-23 22:00] VITALS: BP 111/60
[2021-05-24 04:58] VITALS: BP 101/55
[2021-05-24 05:44] LABS: Basophils # (auto) 0 10 ^3/uL (0-0.2); Basophils % (auto) 0.5 % (0.0-2.0); Eosinophils # (auto) 0 10 ^3/uL (0-0.8); Eosinophils % (auto) 0.5 % (0.0-7.0); Hemoglobin 11.7 g/dL (12.2-16.2); Lymphocytes % (auto) 14.5 % (10.0-50.0); Mean Corpuscular Hgb Conc. 34.3 g/dL (32.0-36.0); Mean Corpuscular Volume 93.3 fL (80.0-100.0); Monocytes # (auto) 0.4 10 ^3/uL (0-1.3); Monocytes % (auto) 5.3 % (0.0-12.0); Neutrophils # (auto) 5.4 10 ^3/uL (1.6-8.6); Neutrophils % (auto) 79.2 % (37.0-80.0); Nucleated Red Blood Cells % 0.1 %; Red Blood Cells 3.65 10^6/uL (4.0-5.20); White Blood Cell 6.8 10^3/uL (4.4-10.8)
[2021-05-24 06:04] LABS: BUN/Creatinine Ratio 39.5; Calcium 7.9 mg/dL (8.5-10.1); Potassium 3.8 mmol/L (3.5-5.1)
[2021-05-24] MEDS: InsuLIN REG 1unit/0.01ml Soln (100units/ml) SC SCH ×4 (06:10→21:54)
[2021-05-24] MEDS: ACCU-CHEK COMFORT CURVE STRIP VI SCH ×4 (06:10→21:52)
[2021-05-24] MEDS: ALBUTEROL SULF HFA 90MCG INH 200DOSE IN PRN ×2 (06:16→19:21)
[2021-05-24] MEDS: BUDESONIDE (INHALATION) 180 MCG IH IN SCH ×2 (06:16→19:10)
[2021-05-24] MEDS: Glucerna Carbsteady SHAKE Vanilla 8oz PO SCH ×2 (07:52→17:22)
[2021-05-24] MEDS: DOPamine 1600MCG/ML D5W 250 ML IV SCH (07:53)
[2021-05-24 08:30] VITALS: BP 120/67
[2021-05-24] MEDS ORDERED: SODIUM CHLORIDE 0.9% 500 ML IV ONE (09:00)
[2021-05-24] MEDS: FUROSEMIDE 20 MG/2 ML VIAL IV SCH (09:02)
[2021-05-24] MEDS: POTASSIUM EFFERVESENT TAB 25 MEQ PO SCH (09:03)
[2021-05-24] MEDS: ZINC SULFATE 220mg CAP or TAB PO SCH (09:03)
[2021-05-24] MEDS: APIXABAN 5 MG TAB PO SCH ×2 (09:03→21:54)
[2021-05-24] MEDS: DexAMETHasone SOD PHOS 10MG/1ML VIAL INJ IV SCH (09:03)
[2021-05-24] MEDS: CHOLECALCIFEROL (VITD3) 2,000 UNIT CAP/TAB PO SCH (09:04)
[2021-05-24] MEDS: ASCORBIC ACID 1,000 MG TAB PO SCH (09:04)
[2021-05-24 12:30] VITALS: BP 92/54
[2021-05-24 16:00] VITALS: BP 112/57
[2021-05-24] MEDS: PANTOPRAZOLE 40 MG/10 ML VIAL INJ IV SCH (21:52)
[2021-05-24] MEDS: INSULIN LANTUS (GLARGINE) 1 /0.01ml (100units/ml) SC SCH (21:54)
[2021-05-24 22:00] VITALS: BP 105/48
[2021-05-25] MEDS: DOPamine 1600MCG/ML D5W 250 ML IV SCH ×2 (04:32→22:59)
[2021-05-25 05:00] VITALS: BP 69/64
[2021-05-25] MEDS: BUDESONIDE (INHALATION) 180 MCG IH IN SCH ×2 (06:02→18:40)
[2021-05-25] MEDS: InsuLIN REG 1unit/0.01ml Soln (100units/ml) SC SCH ×5 (06:44→23:12)
[2021-05-25] MEDS: ACCU-CHEK COMFORT CURVE STRIP VI SCH ×4 (06:44→22:51)
[2021-05-25] MEDS: Glucerna Carbsteady SHAKE Vanilla 8oz PO SCH ×2 (08:03→18:33)
[2021-05-25 09:00] VITALS: BP 117/52
[2021-05-25] MEDS: PANTOPRAZOLE 40 MG/10 ML VIAL INJ IV SCH ×2 (09:31→22:51)
[2021-05-25] MEDS: DexAMETHasone SOD PHOS 10MG/1ML VIAL INJ IV SCH (09:31)
[2021-05-25] MEDS: ZINC SULFATE 220mg CAP or TAB PO SCH (09:31)
[2021-05-25] MEDS: ASCORBIC ACID 1,000 MG TAB PO SCH (09:32)
[2021-05-25] MEDS: POTASSIUM EFFERVESENT TAB 25 MEQ PO SCH (09:32)
[2021-05-25] MEDS: CHOLECALCIFEROL (VITD3) 2,000 UNIT CAP/TAB PO SCH (09:32)
[2021-05-25] MEDS: APIXABAN 5 MG TAB PO SCH ×2 (09:33→22:00)
[2021-05-25] MEDS: FUROSEMIDE 20 MG/2 ML VIAL IV SCH (09:34)
[2021-05-25 13:00] VITALS: BP 104/55
[2021-05-25 16:52] VITALS: BP 119/49
[2021-05-25] MEDS: ALBUTEROL SULF HFA 90MCG INH 200DOSE IN PRN (20:14)
[2021-05-25 22:00] VITALS: BP 139/68
[2021-05-25] MEDS: SUCRALFATE 1 GM/10 ML ORAL SUSP PO SCH (22:51)
[2021-05-25] MEDS: INSULIN LANTUS (GLARGINE) 1 /0.01ml (100units/ml) SC SCH (23:12)
[2021-05-26 04:52] VITALS: BP 122/75
[2021-05-26] MEDS: InsuLIN REG 1unit/0.01ml Soln (100units/ml) SC SCH ×4 (06:01→21:33)
[2021-05-26] MEDS: ACCU-CHEK COMFORT CURVE STRIP VI SCH ×4 (06:01→21:33)
[2021-05-26] MEDS: SUCRALFATE 1 GM/10 ML ORAL SUSP PO SCH ×4 (06:08→21:21)
[2021-05-26 06:11] LABS: Basophils # (auto) 0 10 ^3/uL (0-0.2); Basophils % (auto) 0.4 % (0.0-2.0); Eosinophils # (auto) 0 10 ^3/uL (0-0.8); Eosinophils % (auto) 0.3 % (0.0-7.0); Hematocrit 34.8 % (36.0-46.0); Hemoglobin 11.8 g/dL (12.2-16.2); Lymphocytes # (auto) 0.8 10 ^3/uL (0.4-5.4); Lymphocytes % (auto) 10.5 % (10.0-50.0); Mean Corpuscular Hemoglobin 31.7 pg (28.0-32.0); Mean Corpuscular Hgb Conc. 33.8 g/dL (32.0-36.0); Mean Corpuscular Volume 93.8 fL (80.0-100.0); Monocytes # (auto) 0.3 10 ^3/uL (0-1.3); Monocytes % (auto) 4.7 % (0.0-12.0); Neutrophils # (auto) 6.1 10 ^3/uL (1.6-8.6); Neutrophils % (auto) 84.1 % (37.0-80.0); Red Blood Cells 3.71 10^6/uL (4.0-5.20); Red Cell Distribution Width 14.8 % (11.8-14.3); White Blood Cell 7.3 10^3/uL (4.4-10.8)
[2021-05-26 06:30] LABS: Potassium 3.8 mmol/L (3.5-5.1)
[2021-05-26 06:43] LABS: BUN/Creatinine Ratio 33.9; Calcium 8.4 mg/dL (8.5-10.1)
[2021-05-26] MEDS: Glucerna Carbsteady SHAKE Vanilla 8oz PO SCH ×2 (08:13→18:22)
[2021-05-26 08:41] VITALS: BP 92/62
[2021-05-26] MEDS: DexAMETHasone SOD PHOS 10MG/1ML VIAL INJ IV SCH (09:41)
[2021-05-26] MEDS: ZINC SULFATE 220mg CAP or TAB PO SCH (09:43)
[2021-05-26] MEDS: POTASSIUM EFFERVESENT TAB 25 MEQ PO SCH (09:43)
[2021-05-26] MEDS: PANTOPRAZOLE 40 MG/10 ML VIAL INJ IV SCH ×2 (09:43→21:21)
[2021-05-26] MEDS: ASCORBIC ACID 1,000 MG TAB PO SCH (09:43)
[2021-05-26] MEDS: CHOLECALCIFEROL (VITD3) 2,000 UNIT CAP/TAB PO SCH (09:44)
[2021-05-26] MEDS: BUDESONIDE (INHALATION) 180 MCG IH IN SCH ×2 (10:00→19:57)
[2021-05-26] MEDS: FUROSEMIDE 20 MG/2 ML VIAL IV SCH (10:08)
[2021-05-26] MEDS ORDERED: ENOXAPARIN SOD 40 MG/0.4 ML SYRINGE SC ONE (11:15)
[2021-05-26 13:00] VITALS: BP 73/44
[2021-05-26 17:00] VITALS: BP 76/36
[2021-05-26 18:58] LABS: Urine Amorphous Crystal FEW /hpf (None Seen); Urine Bacteria NONE SEEN /hpf (None Seen); Urine Blood TRACE /uL (Negative); Urine Hyaline Cast MOD /lpf (0 - 2); Urine Mucus FEW (None Seen); Urine Specific Gravity 1.007 (1.001-1.035); Urine WBC 6 /hpf (0 - 5)
[2021-05-26] MEDS: ALBUTEROL SULF HFA 90MCG INH 200DOSE IN PRN (19:57)
[2021-05-26] MEDS: INSULIN LANTUS (GLARGINE) 1 /0.01ml (100units/ml) SC SCH (21:34)
[2021-05-26] MEDS ORDERED: DOPamine 1600MCG/ML D5W 250 ML IV ONE (21:38)
[2021-05-26] MEDS ORDERED: DOPamine 1600MCG/ML D5W 250 ML IV SCH (21:45)
[2021-05-26 23:01] VITALS: BP 99/43
[2021-05-26 23:14] VITALS: BP 72/95
[2021-05-27] VITALS (8 sets, daily range): BP systolic 93–132; BP diastolic 39–69
[2021-05-27] MEDS: DOPamine 1600MCG/ML D5W 250 ML IV SCH (02:23)
[2021-05-27] MEDS: SUCRALFATE 1 GM/10 ML ORAL SUSP PO SCH ×4 (06:05→21:56)
[2021-05-27] MEDS: InsuLIN REG 1unit/0.01ml Soln (100units/ml) SC SCH ×4 (06:07→21:56)
[2021-05-27] MEDS: ACCU-CHEK COMFORT CURVE STRIP VI SCH ×4 (06:07→21:57)
[2021-05-27 06:24] LABS: Basophils # (auto) 0 10 ^3/uL (0-0.2); Basophils % (auto) 0.3 % (0.0-2.0); Eosinophils # (auto) 0 10 ^3/uL (0-0.8); Eosinophils % (auto) 0.3 % (0.0-7.0); Hematocrit 32.3 % (36.0-46.0); Hemoglobin 10.8 g/dL (12.2-16.2); Lymphocytes # (auto) 0.9 10 ^3/uL (0.4-5.4); Lymphocytes % (auto) 11.5 % (10.0-50.0); Mean Corpuscular Hemoglobin 31.3 pg (28.0-32.0); Mean Corpuscular Hgb Conc. 33.3 g/dL (32.0-36.0); Mean Corpuscular Volume 93.9 fL (80.0-100.0); Monocytes # (auto) 0.3 10 ^3/uL (0-1.3); Monocytes % (auto) 4.7 % (0.0-12.0); Neutrophils # (auto) 6.2 10 ^3/uL (1.6-8.6); Neutrophils % (auto) 83.2 % (37.0-80.0); Nucleated Red Blood Cells % 0.1 %; Red Blood Cells 3.44 10^6/uL (4.0-5.20); Red Cell Distribution Width 15.4 % (11.8-14.3); White Blood Cell 7.4 10^3/uL (4.4-10.8)
[2021-05-27 07:17] LABS: Potassium 3.4 mmol/L (3.5-5.1)
[2021-05-27 07:27] LABS: BUN/Creatinine Ratio 47.6; Calcium 8.1 mg/dL (8.5-10.1)
[2021-05-27] MEDS: Glucerna Carbsteady SHAKE Vanilla 8oz PO SCH ×2 (07:54→18:01)
[2021-05-27] MEDS: PANTOPRAZOLE 40 MG/10 ML VIAL INJ IV SCH ×2 (09:43→21:56)
[2021-05-27] MEDS: ZINC SULFATE 220mg CAP or TAB PO SCH (09:44)
[2021-05-27] MEDS: POTASSIUM EFFERVESENT TAB 25 MEQ PO SCH (09:44)
[2021-05-27] MEDS: ENOXAPARIN SOD 40 MG/0.4 ML SYRINGE SC SCH (09:44)
[2021-05-27] MEDS: ASCORBIC ACID 1,000 MG TAB PO SCH (09:44)
[2021-05-27] MEDS: CHOLECALCIFEROL (VITD3) 2,000 UNIT CAP/TAB PO SCH (09:44)
[2021-05-27] MEDS: FUROSEMIDE 20 MG/2 ML VIAL IV SCH (09:45)
[2021-05-27] MEDS: BUDESONIDE (INHALATION) 180 MCG IH IN SCH ×2 (10:00→22:00)
[2021-05-27] MEDS ORDERED: cefTRIAXone 1GM/50ML D5W 50 ML IV ONE (16:00)
[2021-05-27] MEDS: INSULIN LANTUS (GLARGINE) 1 /0.01ml (100units/ml) SC SCH (21:52)
[2021-05-28] VITALS (7 sets, daily range): BP systolic 94–124; BP diastolic 44–64
[2021-05-28] MEDS: DOPamine 1600MCG/ML D5W 250 ML IV SCH (02:15)
[2021-05-28] MEDS: SUCRALFATE 1 GM/10 ML ORAL SUSP PO SCH ×4 (05:52→21:48)
[2021-05-28] MEDS: InsuLIN REG 1unit/0.01ml Soln (100units/ml) SC SCH ×4 (05:52→22:00)
[2021-05-28] MEDS: ACCU-CHEK COMFORT CURVE STRIP VI SCH ×4 (05:52→22:19)
[2021-05-28] MEDS: ACETAMINOPHEN 325 MG TAB PO PRN (07:34)
[2021-05-28] MEDS: Glucerna Carbsteady SHAKE Vanilla 8oz PO SCH ×2 (07:44→17:34)
[2021-05-28] MEDS: BUDESONIDE (INHALATION) 180 MCG IH IN SCH ×2 (08:37→22:19)
[2021-05-28] MEDS: ALBUTEROL SULF HFA 90MCG INH 200DOSE IN PRN ×2 (08:37→22:19)
[2021-05-28] MEDS: FUROSEMIDE 20 MG/2 ML VIAL IV SCH (10:00)
[2021-05-28] MEDS ORDERED: LACTULOSE 20Gm/30ML SOLN PO ONE (11:30)
[2021-05-28] MEDS: POTASSIUM EFFERVESENT TAB 25 MEQ PO SCH (11:43)
[2021-05-28] MEDS: PANTOPRAZOLE 40 MG/10 ML VIAL INJ IV SCH ×2 (11:43→21:49)
[2021-05-28] MEDS: CHOLECALCIFEROL (VITD3) 2,000 UNIT CAP/TAB PO SCH (11:44)
[2021-05-28] MEDS: cefTRIAXone 1GM/50ML D5W 50 ML IV SCH (11:44)
[2021-05-28] MEDS: ENOXAPARIN SOD 40 MG/0.4 ML SYRINGE SC SCH (11:44)
[2021-05-28 15:49] LABS: Basophils # (auto) 0 10 ^3/uL (0-0.2); Basophils % (auto) 0.1 % (0.0-2.0); Eosinophils # (auto) 0.1 10 ^3/uL (0-0.8); Eosinophils % (auto) 0.9 % (0.0-7.0); Hematocrit 31.8 % (36.0-46.0); Hemoglobin 10.8 g/dL (12.2-16.2); Lymphocytes # (auto) 0.7 10 ^3/uL (0.4-5.4); Lymphocytes % (auto) 7.5 % (10.0-50.0); Mean Corpuscular Hemoglobin 31.9 pg (28.0-32.0); Mean Corpuscular Volume 93.9 fL (80.0-100.0); Monocytes # (auto) 0.4 10 ^3/uL (0-1.3); Monocytes % (auto) 4.3 % (0.0-12.0); Neutrophils # (auto) 8.2 10 ^3/uL (1.6-8.6); Neutrophils % (auto) 87.2 % (37.0-80.0); Nucleated Red Blood Cells % 0.1 %; Red Blood Cells 3.39 10^6/uL (4.0-5.20); White Blood Cell 9.4 10^3/uL (4.4-10.8)
[2021-05-28] MEDS: LACTULOSE 20Gm/30ML SOLN PO SCH (21:49)
[2021-05-28] MEDS: INSULIN LANTUS (GLARGINE) 1 /0.01ml (100units/ml) SC SCH (22:00)
[2021-05-29] MEDS: DOPamine 1600MCG/ML D5W 250 ML IV SCH ×2 (02:15→03:39)
[2021-05-29 05:00] VITALS: BP 129/58
[2021-05-29 05:59] LABS: Basophils # (auto) 0 10 ^3/uL (0-0.2); Basophils % (auto) 0.3 % (0.0-2.0); Eosinophils # (auto) 0.2 10 ^3/uL (0-0.8); Eosinophils % (auto) 2.7 % (0.0-7.0); Lymphocytes # (auto) 0.5 10 ^3/uL (0.4-5.4); Lymphocytes % (auto) 7.9 % (10.0-50.0); Mean Corpuscular Hemoglobin 31.2 pg (28.0-32.0); Mean Corpuscular Hgb Conc. 33.2 g/dL (32.0-36.0); Mean Corpuscular Volume 93.9 fL (80.0-100.0); Monocytes # (auto) 0.3 10 ^3/uL (0-1.3); Monocytes % (auto) 4.9 % (0.0-12.0); Neutrophils # (auto) 5.4 10 ^3/uL (1.6-8.6); Neutrophils % (auto) 84.2 % (37.0-80.0); Nucleated Red Blood Cells % 0.2 %; Red Blood Cells 3.51 10^6/uL (4.0-5.20); Red Cell Distribution Width 15.2 % (11.8-14.3); White Blood Cell 6.5 10^3/uL (4.4-10.8)
[2021-05-29 06:33] LABS: BUN/Creatinine Ratio 17.5
[2021-05-29 06:40] LABS: Potassium 2.9 mmol/L (3.5-5.1)
[2021-05-29] MEDS: InsuLIN REG 1unit/0.01ml Soln (100units/ml) SC SCH ×4 (06:40→21:33)
[2021-05-29] MEDS: SUCRALFATE 1 GM/10 ML ORAL SUSP PO SCH ×4 (06:40→21:33)
[2021-05-29] MEDS: ACCU-CHEK COMFORT CURVE STRIP VI SCH ×4 (06:40→21:35)
[2021-05-29] MEDS ORDERED: POTASSIUM CHL 20 Meq TABLET PO ONE (07:30)
[2021-05-29] MEDS: Glucerna Carbsteady SHAKE Vanilla 8oz PO SCH ×2 (08:00→17:18)
[2021-05-29 08:05] VITALS: BP 104/54
[2021-05-29] MEDS: ALBUTEROL SULF HFA 90MCG INH 200DOSE IN PRN (08:43)
[2021-05-29 08:44] VITALS: BP 104/54
[2021-05-29] MEDS: BUDESONIDE (INHALATION) 180 MCG IH IN SCH ×2 (08:44→21:48)
[2021-05-29] MEDS: cefTRIAXone 1GM/50ML D5W 50 ML IV SCH (09:11)
[2021-05-29] MEDS: LACTULOSE 20Gm/30ML SOLN PO SCH ×2 (09:11→21:33)
[2021-05-29] MEDS: PANTOPRAZOLE 40 MG/10 ML VIAL INJ IV SCH ×2 (09:11→21:33)
[2021-05-29] MEDS: CHOLECALCIFEROL (VITD3) 2,000 UNIT CAP/TAB PO SCH (09:12)
[2021-05-29] MEDS: ENOXAPARIN SOD 40 MG/0.4 ML SYRINGE SC SCH (09:12)
[2021-05-29] MEDS ORDERED: SODIUM CHLORIDE 0.9% 1,000 ML IV ONE (11:30)
[2021-05-29 12:22] VITALS: BP 80/51
[2021-05-29 17:00] VITALS: BP 108/58
[2021-05-29] MEDS: INSULIN LANTUS (GLARGINE) 1 /0.01ml (100units/ml) SC SCH (21:35)
[2021-05-29 22:00] VITALS: BP 135/59
[2021-05-30 05:00] VITALS: BP 124/57
[2021-05-30] MEDS: ALBUTEROL SULF HFA 90MCG INH 200DOSE IN PRN ×2 (05:46→19:35)
[2021-05-30] MEDS: BUDESONIDE (INHALATION) 180 MCG IH IN SCH ×2 (05:46→19:35)
[2021-05-30] MEDS: InsuLIN REG 1unit/0.01ml Soln (100units/ml) SC SCH ×4 (06:27→22:00)
[2021-05-30] MEDS: ACCU-CHEK COMFORT CURVE STRIP VI SCH ×4 (06:27→22:07)
[2021-05-30] MEDS: SUCRALFATE 1 GM/10 ML ORAL SUSP PO SCH ×4 (06:27→22:06)
[2021-05-30] MEDS: Glucerna Carbsteady SHAKE Vanilla 8oz PO SCH ×2 (07:30→17:30)
[2021-05-30 07:45] VITALS: BP 112/48
[2021-05-30] MEDS ORDERED: DOPamine 1600MCG/ML D5W 250 ML IV SCH (08:00)
[2021-05-30 08:30] VITALS: BP 112/48
[2021-05-30 09:05] LABS: BUN/Creatinine Ratio 8.2; Calcium 7.8 mg/dL (8.5-10.1); Magnesium 2.3 mg/dL (1.6-2.6)
[2021-05-30] MEDS: cefTRIAXone 1GM/50ML D5W 50 ML IV SCH (09:07)
[2021-05-30] MEDS: ENOXAPARIN SOD 40 MG/0.4 ML SYRINGE SC SCH (09:08)
[2021-05-30] MEDS: LACTULOSE 20Gm/30ML SOLN PO SCH ×2 (09:08→22:06)
[2021-05-30] MEDS: CHOLECALCIFEROL (VITD3) 2,000 UNIT CAP/TAB PO SCH (09:09)
[2021-05-30] MEDS ORDERED: POTASSIUM EFFERVESENT TAB 25 MEQ PO ONE (09:30)
[2021-05-30] MEDS: PANTOPRAZOLE 40 MG/10 ML VIAL INJ IV SCH ×2 (09:41→22:05)
[2021-05-30] MEDS: MIDODRINE HCL 10 MG TAB PO SCH ×2 (12:02→18:31)
[2021-05-30 12:31] VITALS: BP 83/43
[2021-05-30 16:36] VITALS: BP_SYST 78; BP_SYST 83; BP_DIAS 38; BP_DIAS 43
[2021-05-30 22:00] VITALS: BP 129/59
[2021-05-30] MEDS: INSULIN LANTUS (GLARGINE) 1 /0.01ml (100units/ml) SC SCH (22:07)
[2021-05-31 05:00] VITALS: BP 99/50
[2021-05-31] MEDS: ALBUTEROL SULF HFA 90MCG INH 200DOSE IN PRN (05:51)
[2021-05-31] MEDS: BUDESONIDE (INHALATION) 180 MCG IH IN SCH ×2 (05:51→20:10)
[2021-05-31 06:09] LABS: Basophils # (auto) 0 10 ^3/uL (0-0.2); Basophils % (auto) 0.6 % (0.0-2.0); Eosinophils # (auto) 0.2 10 ^3/uL (0-0.8); Eosinophils % (auto) 3.9 % (0.0-7.0); Hemoglobin 11.2 g/dL (12.2-16.2); Lymphocytes # (auto) 0.6 10 ^3/uL (0.4-5.4); Lymphocytes % (auto) 10.5 % (10.0-50.0); Mean Corpuscular Hemoglobin 31.8 pg (28.0-32.0); Mean Corpuscular Hgb Conc. 33.9 g/dL (32.0-36.0); Mean Corpuscular Volume 93.7 fL (80.0-100.0); Monocytes # (auto) 0.3 10 ^3/uL (0-1.3); Monocytes % (auto) 5.3 % (0.0-12.0); Neutrophils # (auto) 4.4 10 ^3/uL (1.6-8.6); Neutrophils % (auto) 79.7 % (37.0-80.0); Nucleated Red Blood Cells % 0.1 %; Red Blood Cells 3.52 10^6/uL (4.0-5.20); Red Cell Distribution Width 15.1 % (11.8-14.3); White Blood Cell 5.6 10^3/uL (4.4-10.8)
[2021-05-31] MEDS: MIDODRINE HCL 10 MG TAB PO SCH ×3 (06:12→16:52)
[2021-05-31] MEDS: InsuLIN REG 1unit/0.01ml Soln (100units/ml) SC SCH ×4 (06:13→21:49)
[2021-05-31] MEDS: ACCU-CHEK COMFORT CURVE STRIP VI SCH ×4 (06:13→21:50)
[2021-05-31] MEDS: SUCRALFATE 1 GM/10 ML ORAL SUSP PO SCH ×4 (06:13→22:00)
[2021-05-31 06:40] LABS: Potassium 3.3 mmol/L (3.5-5.1)
[2021-05-31 06:47] LABS: BUN/Creatinine Ratio 11.1; Calcium 8.2 mg/dL (8.5-10.1)
[2021-05-31 09:00] VITALS: BP 109/52
[2021-05-31] MEDS: Glucerna Carbsteady SHAKE Vanilla 8oz PO SCH ×2 (10:41→16:52)
[2021-05-31] MEDS: LACTULOSE 20Gm/30ML SOLN PO SCH ×2 (10:42→22:00)
[2021-05-31] MEDS: cefTRIAXone 1GM/50ML D5W 50 ML IV SCH (10:42)
[2021-05-31] MEDS: PANTOPRAZOLE 40 MG/10 ML VIAL INJ IV SCH ×2 (10:43→21:48)
[2021-05-31] MEDS: ENOXAPARIN SOD 40 MG/0.4 ML SYRINGE SC SCH (10:43)
[2021-05-31] MEDS: CHOLECALCIFEROL (VITD3) 2,000 UNIT CAP/TAB PO SCH (10:43)
[2021-05-31] MEDS ORDERED: POTASSIUM EFFERVESENT TAB 25 MEQ GT ONE (11:15)
[2021-05-31] MEDS ORDERED: DOPamine 1600MCG/ML D5W 250 ML IV SCH (11:30)
[2021-05-31 13:00] VITALS: BP 101/53
[2021-05-31 17:00] VITALS: BP 89/44
[2021-05-31 20:00] VITALS: BP 89/44
[2021-05-31] MEDS: INSULIN LANTUS (GLARGINE) 1 /0.01ml (100units/ml) SC SCH (21:56)
[2021-05-31 22:00] VITALS: BP 85/42
[2021-06-01 02:04] LABS: INR 1.05 (0.9-1.15); Partial Thromboplastin Time 32.3 sec (23.6-33.0)
[2021-06-01 05:24] LABS: Urine Amorphous Crystal FEW /hpf (None Seen); Urine Bacteria FEW /hpf (None Seen); Urine Blood 1+ /uL (Negative); Urine Hyaline Cast FEW /lpf (0 - 2); Urine Mucus FEW (None Seen); Urine Specific Gravity 1.026 (1.001-1.035); Urine WBC 75 /hpf (0 - 5); Urine WBC Clumps PRESENT /hpf (None Seen)
[2021-06-01] MEDS: MIDODRINE HCL 10 MG TAB PO SCH ×3 (05:52→17:45)
[2021-06-01 06:00] VITALS: BP 94/50
[2021-06-01 06:36] LABS: Basophils # (auto) 0 10 ^3/uL (0-0.2); Basophils % (auto) 0.6 % (0.0-2.0); Eosinophils # (auto) 0.1 10 ^3/uL (0-0.8); Eosinophils % (auto) 2.2 % (0.0-7.0); Hemoglobin 9.8 g/dL (12.2-16.2); Lymphocytes # (auto) 0.7 10 ^3/uL (0.4-5.4); Mean Corpuscular Hemoglobin 32.2 pg (28.0-32.0); Mean Corpuscular Hgb Conc. 33.8 g/dL (32.0-36.0); Mean Corpuscular Volume 95.2 fL (80.0-100.0); Monocytes # (auto) 0.3 10 ^3/uL (0-1.3); Monocytes % (auto) 6.5 % (0.0-12.0); Neutrophils # (auto) 3.5 10 ^3/uL (1.6-8.6); Neutrophils % (auto) 75.7 % (37.0-80.0); Nucleated Red Blood Cells % 0.2 %; Red Blood Cells 3.05 10^6/uL (4.0-5.20); Red Cell Distribution Width 16.1 % (11.8-14.3); White Blood Cell 4.6 10^3/uL (4.4-10.8)
[2021-06-01 06:48] LABS: BUN/Creatinine Ratio 14.7; Calcium 8.4 mg/dL (8.5-10.1); Potassium 3.2 mmol/L (3.5-5.1)
[2021-06-01] MEDS: SUCRALFATE 1 GM/10 ML ORAL SUSP PO SCH ×4 (06:54→22:35)
[2021-06-01] MEDS: InsuLIN REG 1unit/0.01ml Soln (100units/ml) SC SCH ×5 (06:55→22:00)
[2021-06-01] MEDS ORDERED: ACCU-CHEK COMFORT CURVE STRIP VI SCH ×2 (07:00→07:15)
[2021-06-01] MEDS ORDERED: DEXTROSE (50%) 50ML SYRG IV PRN (07:15)
[2021-06-01] MEDS: Glucerna Carbsteady SHAKE Vanilla 8oz PO SCH ×2 (08:00→17:45)
[2021-06-01 09:00] VITALS: BP 106/48
[2021-06-01] MEDS: cefTRIAXone 1GM/50ML D5W 50 ML IV SCH (09:35)
[2021-06-01] MEDS: ENOXAPARIN SOD 40 MG/0.4 ML SYRINGE SC SCH (09:36)
[2021-06-01] MEDS: PANTOPRAZOLE 40 MG/10 ML VIAL INJ IV SCH ×2 (09:36→22:34)
[2021-06-01] MEDS: LACTULOSE 20Gm/30ML SOLN PO SCH ×2 (10:00→22:00)
[2021-06-01] MEDS: CHOLECALCIFEROL (VITD3) 2,000 UNIT CAP/TAB PO SCH (10:00)
[2021-06-01] MEDS: POTASSIUM CHL 20MEQ/50ML 50 ML IV SCH ×2 (10:30→12:28)
[2021-06-01] MEDS: ACCU-CHEK COMFORT CURVE STRIP VI SCH ×4 (11:30→22:35)
[2021-06-01 13:00] VITALS: BP 111/53
[2021-06-01 17:00] VITALS: BP 110/40
[2021-06-01 22:00] VITALS: BP 103/53
[2021-06-01] MEDS: INSULIN LANTUS (GLARGINE) 1 /0.01ml (100units/ml) SC SCH (22:00)
[2021-06-02 05:00] VITALS: BP 99/44
[2021-06-02 05:43] LABS: Calcium 8.2 mg/dL (8.5-10.1); Potassium 3.4 mmol/L (3.5-5.1)
[2021-06-02 05:45] LABS: BUN/Creatinine Ratio 17.5
[2021-06-02 06:09] LABS: Basophils # (auto) 0 10 ^3/uL (0-0.2); Basophils % (auto) 0.7 % (0.0-2.0); Eosinophils # (auto) 0.1 10 ^3/uL (0-0.8); Eosinophils % (auto) 2.6 % (0.0-7.0); Hematocrit 27.7 % (36.0-46.0); Hemoglobin 9.3 g/dL (12.2-16.2); Lymphocytes # (auto) 0.6 10 ^3/uL (0.4-5.4); Lymphocytes % (auto) 15.8 % (10.0-50.0); Mean Corpuscular Hgb Conc. 33.5 g/dL (32.0-36.0); Mean Corpuscular Volume 95.6 fL (80.0-100.0); Monocytes # (auto) 0.3 10 ^3/uL (0-1.3); Monocytes % (auto) 6.7 % (0.0-12.0); Neutrophils % (auto) 74.2 % (37.0-80.0); Nucleated Red Blood Cells % 0.1 %
[2021-06-02] MEDS: SUCRALFATE 1 GM/10 ML ORAL SUSP PO SCH ×4 (06:29→22:18)
[2021-06-02] MEDS: ACCU-CHEK COMFORT CURVE STRIP VI SCH ×4 (06:30→22:00)
[2021-06-02] MEDS: InsuLIN REG 1unit/0.01ml Soln (100units/ml) SC SCH ×4 (06:30→22:00)
[2021-06-02] MEDS: MIDODRINE HCL 10 MG TAB PO SCH ×3 (06:44→17:23)
[2021-06-02] MEDS: Glucerna Carbsteady SHAKE Vanilla 8oz PO SCH ×2 (08:00→17:22)
[2021-06-02] MEDS: BUDESONIDE (INHALATION) 180 MCG IH IN SCH ×2 (08:59→18:15)
[2021-06-02] MEDS: ALBUTEROL SULF HFA 90MCG INH 200DOSE IN PRN ×2 (08:59→20:51)
[2021-06-02] MEDS: PANTOPRAZOLE 40 MG/10 ML VIAL INJ IV SCH ×2 (09:12→22:18)
[2021-06-02] MEDS: cefTRIAXone 1GM/50ML D5W 50 ML IV SCH (09:12)
[2021-06-02] MEDS: ENOXAPARIN SOD 40 MG/0.4 ML SYRINGE SC SCH (09:13)
[2021-06-02] MEDS ORDERED: PULMICORT IN SCH (10:00)
[2021-06-02 13:00] VITALS: BP 105/53
[2021-06-02] MEDS: POTASSIUM CHL 20MEQ/50ML 50 ML IV SCH ×2 (13:31→17:19)
[2021-06-02] MEDS ORDERED: fentaNYL CITRATE 100 MCG/2 ML VL ONE (14:23)
[2021-06-02] MEDS ORDERED: MIDAZOLAM HCL 2MG/2ML 2ml VIAL (1mg/ml) ONE (14:24)
[2021-06-02] MEDS ORDERED: LIDOCAINE 2%HCL (LOCAL ANESTH.) INJ 20ML MDV ONE (14:24)
[2021-06-02 17:00] VITALS: BP 110/55
[2021-06-02] MEDS ORDERED: levoFLOXacin 750MG 150 ML IV ONE (17:45)
[2021-06-02 22:00] VITALS: BP 102/46
[2021-06-02] MEDS: INSULIN LANTUS (GLARGINE) 1 /0.01ml (100units/ml) SC SCH (22:00)
[2021-06-03 05:00] VITALS: BP 107/47
[2021-06-03 05:40] LABS: Basophils # (auto) 0 10 ^3/uL (0-0.2); Basophils % (auto) 0.6 % (0.0-2.0); Eosinophils # (auto) 0.1 10 ^3/uL (0-0.8); Eosinophils % (auto) 2.9 % (0.0-7.0); Hematocrit 29.5 % (36.0-46.0); Hemoglobin 9.6 g/dL (12.2-16.2); Lymphocytes # (auto) 0.6 10 ^3/uL (0.4-5.4); Lymphocytes % (auto) 17.4 % (10.0-50.0); Mean Corpuscular Hemoglobin 31.2 pg (28.0-32.0); Mean Corpuscular Hgb Conc. 32.6 g/dL (32.0-36.0); Mean Corpuscular Volume 95.7 fL (80.0-100.0); Monocytes # (auto) 0.4 10 ^3/uL (0-1.3); Monocytes % (auto) 10.5 % (0.0-12.0); Neutrophils # (auto) 2.4 10 ^3/uL (1.6-8.6); Neutrophils % (auto) 68.6 % (37.0-80.0); Nucleated Red Blood Cells % 0.2 %; Red Blood Cells 3.09 10^6/uL (4.0-5.20); Red Cell Distribution Width 15.6 % (11.8-14.3); White Blood Cell 3.6 10^3/uL (4.4-10.8)
[2021-06-03] MEDS: BUDESONIDE (INHALATION) 180 MCG IH IN SCH (05:48)
[2021-06-03] MEDS: ALBUTEROL SULF HFA 90MCG INH 200DOSE IN PRN (05:48)
[2021-06-03 06:00] LABS: Calcium 7.6 mg/dL (8.5-10.1)
[2021-06-03 06:03] LABS: BUN/Creatinine Ratio 12.7
[2021-06-03] MEDS: InsuLIN REG 1unit/0.01ml Soln (100units/ml) SC SCH ×3 (06:42→17:00)
[2021-06-03] MEDS: ACCU-CHEK COMFORT CURVE STRIP VI SCH ×3 (06:42→17:00)
[2021-06-03] MEDS: SUCRALFATE 1 GM/10 ML ORAL SUSP PO SCH ×3 (06:43→17:00)
[2021-06-03] MEDS: MIDODRINE HCL 10 MG TAB PO SCH ×2 (06:52→13:05)
[2021-06-03 09:00] VITALS: BP 107/52
[2021-06-03] MEDS: Glucerna Carbsteady SHAKE Vanilla 8oz PO SCH ×2 (09:54→17:10)
[2021-06-03] MEDS: PANTOPRAZOLE 40 MG/10 ML VIAL INJ IV SCH (09:54)
[2021-06-03] MEDS: ENOXAPARIN SOD 40 MG/0.4 ML SYRINGE SC SCH (09:55)
[2021-06-03] MEDS ORDERED: levoFLOXacin 750MG 150 ML IV SCH (10:00)
[2021-06-03] MEDS ORDERED: PANT40TA2 PO (12:38)
[2021-06-03] MEDS ORDERED: LEVO750T64 PO (12:38)
[2021-06-03] MEDS ORDERED: ALBUAER3 IN (12:38)
[2021-06-03] MEDS ORDERED: SUCR1SUS10 PO (12:38)
[2021-06-03] MEDS ORDERED: MID10T PO (12:38)
[2021-06-03] MEDS ORDERED: METF-370 PO (12:40)
[2021-06-03 13:00] VITALS: BP 109/49
== END 2021-06-03 17:00 | disposition home health service (06) | DRG 871 ==
LOC: ER 12:41 → EDBD 12:41 → TELE 17:14 → TELE-EAST 05-05 14:07 → EAST 05-06 16:29 → TELE-E-ADS 05-09 01:52 → TELE-EAST 05-21 11:00
PROVIDERS: ADMIT Family Medicine; ATTEND Internal Medicine Pulmonary Disease
PROC: 5A09457 Assistance with Respiratory Ventilation, 24-96 Consecutive Hours, Continuous Positive Airway Pressure (ICD-10-PCS; principal; 2021-05-01)
PROC: XW033E5 Introduction of Remdesivir Anti-infective into Peripheral Vein, Percutaneous Approach, New Technology Group 5 (ICD-10-PCS; 2021-05-01)
PROC: 05H933Z Insertion of Infusion Device into Right Brachial Vein, Percutaneous Approach (ICD-10-PCS; 2021-05-17)
PROC: B54MZZA Ultrasonography of Right Upper Extremity Veins, Guidance (ICD-10-PCS; 2021-05-17)
PROC: 5A0935A Assistance with Respiratory Ventilation, Less than 24 Consecutive Hours, High Flow/Velocity Cannula (ICD-10-PCS; 2021-05-21)
PROC: 5A0935A Assistance with Respiratory Ventilation, Less than 24 Consecutive Hours, High Flow/Velocity Cannula (ICD-10-PCS; 2021-05-22)
PROC: 06H03DZ Insertion of Intraluminal Device into Inferior Vena Cava, Percutaneous Approach (ICD-10-PCS; 2021-06-02)
PROC: B5191ZA Fluoroscopy of Inferior Vena Cava using Low Osmolar Contrast, Guidance (ICD-10-PCS; 2021-06-02)
DX: A41.89 Other specified sepsis (principal); U07.1 COVID-19; J96.01 Acute respiratory failure with hypoxia; J12.82 Pneumonia due to coronavirus disease 2019; I50.31 Acute diastolic (congestive) heart failure; I21.4 Non-ST elevation (NSTEMI) myocardial infarction; I26.99 Other pulmonary embolism without acute cor pulmonale; E46 Unspecified protein-calorie malnutrition; D68.59 Other primary thrombophilia; I47.1 Supraventricular tachycardia; K92.1 Melena; N39.0 Urinary tract infection, site not specified; I82.409 Acute embolism and thrombosis of unspecified deep veins of unspecified lower extremity; E66.3 Overweight; Z86.711 Personal history of pulmonary embolism; D64.9 Anemia, unspecified; Z86.718 Personal history of other venous thrombosis and embolism; E11.8 Type 2 diabetes mellitus with unspecified complications; I95.9 Hypotension, unspecified; Z68.22 Body mass index [BMI] 22.0-22.9, adult; I11.0 Hypertensive heart disease with heart failure
CPT/HCPCS: 36415; 36600; 37191; 51702; 70450; 71045; 71275; 74018; 80048; 80053; 80061; 81001; 82140; 82270; 82306; 82728; 82805; 82962; 83036; 83605; 83615; 83735; 83880; 84132; 84443; 84484; 85007; 85025; 85027; 85379; 85610; 85730; 86141; 86850; 86900; 86901; 87040; 87081; 87086; 87088; 87186; 87426; 93005; 93306; 93970; 94640; 94660; 96361; 96365; 96366; 96372; 96375; 97110; 97116; 97163; 97530; 99152; 99291; C9113; G0378; J0153; J0696; J1100; J1815; J1956; J2001; J2250; J2405; J7060

== ENCOUNTER 2021-09-30 15:50 | Emergency (ER) | payer OTHER, MEDICAID ==
[~2021-09-30] VITALS: Ht 157.5 cm; Wt 54.4 kg
[~2021-09-30 15:50] MED LIST: ALBUAER3 IN; LEVO750T64 PO; METF-370 PO; MID10T PO; PANT40TA2 PO; SUCR1SUS10 PO
[2021-09-30] MEDS ORDERED: CEFEPIME 2 GM in SODIUM CHL 0.9% 50 ML IV ONE (17:00)
[2021-09-30] MEDS ORDERED: VANCOMYCIN PER PHARMACY 0 MG IV SCH (17:00)
[2021-09-30] MEDS ORDERED: ACETAMINOPHEN 325 MG TAB PO ONE (17:15)
[2021-09-30] MEDS ORDERED: CEFEPIME 2 GM in D5W 5% 50 ML IV ONE (17:15)
[2021-09-30] MEDS ORDERED: VANCOMYCIN 1GM/250ML 250 ML IV ONE (17:45)
[2021-09-30 17:58] LABS: BUN/Creatinine Ratio 19.2; Calcium 8.4 mg/dL (8.5-10.1); Magnesium 2.1 mg/dL (1.6-2.6)
[2021-09-30 18:01] LABS: Potassium 2.7 mmol/L (3.5-5.1)
[2021-09-30] MEDS ORDERED: POTASSIUM EFFERVESENT TAB 25 MEQ PO ONE (18:15)
[2021-09-30 18:24] LABS: Basophils # (auto) 0 10 ^3/uL (0-0.2); Basophils % (auto) 0.2 % (0.0-2.0); Eosinophils # (auto) 0 10 ^3/uL (0-0.8); Hematocrit 38.7 % (36.0-46.0); Lymphocytes # (auto) 0.5 10 ^3/uL (0.4-5.4); Lymphocytes % (auto) 7.7 % (10.0-50.0); Mean Corpuscular Hemoglobin 29.3 pg (28.0-32.0); Mean Corpuscular Hgb Conc. 33.5 g/dL (32.0-36.0); Mean Corpuscular Volume 87.7 fL (80.0-100.0); Monocytes # (auto) 0.4 10 ^3/uL (0-1.3); Monocytes % (auto) 5.1 % (0.0-12.0); Nucleated Red Blood Cells % 0.1 %; Red Blood Cells 4.42 10^6/uL (4.0-5.20); Red Cell Distribution Width 15.6 % (11.8-14.3); White Blood Cell 6.9 10^3/uL (4.4-10.8)
[2021-09-30 18:27] LABS: Urine Bacteria NONE SEEN /hpf (None Seen); Urine Blood Negative /uL (Negative); Urine Specific Gravity 1.005 (1.001-1.035); Urine WBC 1 /hpf (0 - 5)
[2021-09-30] MEDS: POTASSIUM CHL 20MEQ/100ML 100 ML IV SCH ×2 (18:45→23:23)
[2021-10-01 02:19] VITALS: BP 117/79
[2021-10-01] MEDS ORDERED: VANCOMYCIN 750mg/250ml 250 ML IV SCH (10:00)
== END 2021-10-01 03:17 | disposition short-term general hospital (02) ==
LOC: ER 15:50 → EDBD 15:50 → ER 10-01 03:17
DX: A41.9 Sepsis, unspecified organism (principal); J18.9 Pneumonia, unspecified organism; E87.6 Hypokalemia
CPT/HCPCS: 36415; 70450; 71045; 80048; 81001; 83605; 83735; 84484; 85025; 87040; 87077; 87186; 87426; 93005; 96365; 96366; 96367; 96368; 99285; J0692; J3370; J3480; J7030; J7060

== ENCOUNTER 2024-09-20 20:01 | Emergency (ER) | payer OTHER, MEDICAID ==
[~2024-09-20] VITALS: Ht 154.9 cm; Wt 54.5 kg
[~2024-09-20 20:01] MED LIST changes: +LEVO750T40 PO; -LEVO750T64 PO; -SUCR1SUS10 PO; +SUCR1SUS26 PO
--- NOTE | 2024-09-20 20:18 | ED.PDOC ---
History of Present Illness HPI Comments 79-year-old female came to ER via EMS for chest pains. Patient has an extensive cardiac history, including hypertension, diabetes, mi, DVT, PE, CHF. States about 4 hours ago, at home, she was having some left-sided chest pain, sharp, nonradiating, associated headaches. Noted that her blood pressure was elevated at home, so she took losartan 50 mg, unknowing that her medications are already . She went to [facility], noted that she was bradycardic at 40s, so she was sent to the ER for further evaluation and management. At this time, patient states she feels better, denies any chest pains. 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 Allergies: Coded Allergies: Acetaminophen (Verified Allergy, Unknown, 09/20/24) Propoxyphene (Verified Allergy, Unknown, 09/20/24) Uncoded Allergies: CONTRAST DYE (Allergy, Unknown, 09/20/24) Home Meds Active Scripts Losartan Potassium (Losartan Potassium) 25 Mg Tab, 1 TAB PO DAILY, #90 TAB 5 Refills Prov:KEVAN LOREDO MD 09/20/24 Metformin Hydrochloride (Metformin Hcl) 500 Mg Tab, 1 TAB PO BID, #60 TAB 3 Refills Prov:SON PHIPPS MD 06/03/21 Levofloxacin Hemihydrate (LEVOFLOXACIN) 750 Mg Tab, 1 TAB PO DAILY, #7 TAB Prov:SON PHIPPS MD 06/03/21 Sucralfate (CARAFATE SUSP) 1 Gm/10 Ml Ss, 1 GM PO QIDACHS for 30 Days, #30 ML Prov:SON PHIPPS MD 06/03/21 Pantoprazole Sodium Sesquihydr (Protonix) 40 Mg Tab, 40 MG PO DAILY PRN for 30 Days, #30 TAB Prov:SON PHIPPS MD 06/03/21 Midodrine HCl (Midodrine HCl) 10 Mg Tab, 10 MG PO TID@0600,1200,1800 for 90 Days, #90 TAB Prov:SON PHIPPS MD 06/03/21 Albuterol Sulfate (VENTOLIN MDI) 90 Mcg Ih, 180 MCG IN TID PRN for 30 Days, #30 INH Prov:SON PHIPPS MD 06/03/21 Information Source: Patient, Emergency Med Personnel Mode of Arrival: EMS Severity: Moderate Timing: Hours Duration: Intermittent Prehospital treatment: 12 Lead EKG, Accucheck Past Medical History PAST MEDICAL HISTORY: CHF, DM, HTN, [place], PE Past Medical History (Other): DVT, SVT, COVID-19 Surgical History: Denies all surgeries THRILL PERFORMER History: Denies all THRILL PERFORMER Hx Family History Family History: Reviewed,noncontributory to illness Social History Smoker: Non-Smoker Alcohol: Denies ETOH Use Drugs: Denies Drug Use Lives In: Home Constitutional: denies: chills, diaphoresis, fatigue, fever, malaise, sweats, weakness, others EENTM: denies: blurred vision, double vision, ear bleeding, ear discharge, ear drainage, ear pain, ear ringing, eye pain, eye redness, hearing loss, mouth pain, mouth swelling, nasal discharge, nose bleeding, nose congestion, nose pain, photophobia, tearing, throat pain, throat swelling, voice changes, others Respiratory: denies: cough, hemoptysis, orthopnea, SOB at rest, shortness of breath, SOB with excertion, stridor, wheezing, others Cardiovascular: reports: chest pain; denies: dizzy spells, diaphoresis, Dyspnea on exertion, edema, irregular heart beat, left arm pain, lightheadedness, palpitations, PND, syncope, others Gastrointestinal: denies: abdomen distended, abdominal pain, blood streaked bowels, constipated, diarrhea, dysphagia, difficulty swallowing, hematemesis, melena, nausea, poor appetite, poor fluid intake, rectal bleeding, rectal pain, vomiting, others Genitourinary: denies: abnormal vagina bleeding, burning, dyspareunia, dysuria, flank pain, frequency, hematuria, incontinence, pain, , vagina discharge, urgency, others Neurological: reports: headache; denies: dizziness, fainting, left sided numbness, left sided weakness, numbness, paresthesia, pre-existing deficit, right sided numbness, right sided weakness, seizure, speech problems, tingling, tremors, weakness, others Musculoskeletal: denies: back pain, gout, joint pain, joint swelling, muscle pain, muscle stiffness, neck pain, others Integumetry: denies: bruises, change in color, change in hair/nails, dryness, laceration, lesions, lumps, rash, wounds, others Allergic/Immunocompromised: denies: Difficulty Healing, Frequent Infections, H mindy, Itching, others Hematologic/Lymphatic: denies: anemia, blood clots, easy bleeding, easy bruising, swollen glands, others Endocrine: reports: excessive urination; denies: excessive hunger, excessive sweating, excessive thirst, flushing, intolerance to cold, intolerance to heat, unexplained weight gain, unexplained weight loss, others Psychiatric: denies: anxiety, bipolar disorder, depression, hopeless, panic disorder, schizophrenia, sleepless, suicidal, others Physical Exam General Appearance: No Apparent Distress, Normal HEENT: Normal ENT Inspection, Pharynx Normal, TMs Normal Neck: Full Range of Motion, Non-Tender, Normal, Normal Inspection Respiratory: Chest Non-Tender, Lungs Clear, No Accessory Muscle Use, No Respiratory Distress, Normal Breath Sounds Cardiovascular: No Edema, No JVD, No Murmur, No Gallop, Normal Peripheral Pulses, Regular Rate/Rhythm Breast Exam: Deferred Gastrointestinal: No Organomegaly, Non Tender, No Pulsatile Mass, Normal Bowel Sounds, Soft Genitalia: Deferred Pelvic: Deferred Rectal: Deferred Extremities: No calf tenderness, Normal capillary refill, Normal inspection, Normal range of motion, Non-tender, No pedal edema Musculoskeletal : Apperance: Normal Neurologic: Alert, boom boss II-XII nml as Tested, No Motor Deficits, Normal Affect, Normal Mood, No Sensory Deficits Cerebellar Function: Normal Reflexes: Normal Skin: Dry, Normal Color, Warm Lymphatic: No Adenopathy Was a procedure done? Was a procedure done?: No EKG EKG : Pulse Rate (adult): 46 Cardiac Rhythm: SB Differential Dx Considerations may include: Anemia, electrolyte imbalance, hypertension, coronary artery disease, mi, anxiety X-Ray, Labs, Meds, VS Vital Signs Date Time Temp Pulse Resp B/P (MAP) Pulse Ox O2 Delivery O2 Flow Rate FiO2 09/20/24 22:00 97.8 47 15 117/37 (63) 96 97.8 09/20/24 21:00 97.8 48 13 118/43 (68) 94 97.8 09/20/24 21:00 Room Air* 0 21 09/20/24 20:18 46 09/20/24 20:11 46 09/20/24 20:05 97.7 47 16 154/71 (98) 97 97.7 Lab Test 09/20/24 21:34 09/20/24 20:21 Range/Units Troponin I High Sensitivity 13 14 </=34 ng/L White Blood Count 10.0 4.4-10.8 10^3/uL Red Blood Count 4.98 4.0-5.20 10^6/uL Hemoglobin 15.8 12.2-16.2 g/dL Hematocrit 47.7 H 36.0-46.0 % Mean Corpuscular Volume 95.7 80.0-100.0 fL Mean Corpuscular Hemoglobin 31.8 28.0-32.0 pg Mean Corpuscular Hemoglobin Concent 33.2 32.0-36.0 g/dL Red Cell Distribution Width 14.1 11.8-14.3 % Platelet Count 204 140-450 10^3/uL Mean Platelet Volume 8.4 6.9-10.8 fL Neutrophils (%) (Auto) 54.9 37.0-80.0 % Lymphocytes (%) (Auto) 36.4 10.0-50.0 % Monocytes (%) (Auto) 5.7 0.0-12.0 % Eosinophils (%) (Auto) 2.3 0.0-7.0 % Basophils (%) (Auto) 0.7 0.0-2.0 % Neutrophils # (Auto) 5.5 1.6-8.6 10 ^3/uL Lymphocytes # (Auto) 3.7 0.4-5.4 10 ^3/uL Monocytes # (Auto) 0.6 0-1.3 10 ^3/uL Eosinophils # (Auto) 0.2 0-0.8 10 ^3/uL Basophils # (Auto) 0.1 0-0.2 10 ^3/uL Nucleated Red Blood Cells 0.1 % Sodium Level 140 136-145 mmol/L Potassium Level 3.7 3.5-5.1 mmol/L Chloride Level 105 98-107 mmol/L Carbon Dioxide Level 26 20-31 mmol/L Anion Gap 9 5-15 Blood Urea Nitrogen 22 9-23 mg/dL Creatinine 0.84 0.550-1.02 mg/dL Glomerular Filtration Rate Calc 71 >90 mL/min BUN/Creatinine Ratio 26.2 H 10.0-20.0 Serum Glucose 125 H 74-106 mg/dL Calcium Level 10.3 8.7-10.4 mg/dL Total Bilirubin 0.7 0.2-1.0 mg/dL Aspartate Amino Transferase (AST) 22 13-40 U/L Alanine Aminotransferase (ALT) 34 7-40 U/L Alkaline Phosphatase 87 46-116 U/L Total Protein 7.7 5.7-8.2 g/dL Albumin 5.1 H 3.2-4.8 g/dL Current Medications Medications (Trade) Dose Ordered Sig/Saul Route Start Time Stop Time Status Last Admin Loperamide HCl (Imodium Capsule) 4 mg ONCE ONCE PO 09/20/24 21:45 09/20/24 21:46 DC 09/20/24 21:47 Sodium Chloride 1,000 ml @ 1,000 mls/hr Q1H ONCE IV 09/20/24 22:45 09/20/24 23:44 DC 09/20/24 22:50 CHEST RADIOGRAPH Indication: chest pain Technique: Single frontal view of the chest was obtained Comparison: 09/30/2021 FINDINGS: Lines and Tubes: None Lungs: No focal consolidation. Pleura: No effusion. No pneumothorax. Cardiomediastinal contours: Unremarkable Bones: No acute osseous abnormality. IMPRESSION: 1. No acute cardiopulmonary disease. Time of 1ST Reevaluation: 20:11 Reevaluation 1ST: Unchanged Consultation: Other ([facility] , authorization # [id number]) Patient Education/Counseling: Diagnosis, Treatment Family Education/Counseling: No Family Present Departure 1 Departure Time of Disposition: 23:46 Impression: Primary Impression: Atypical chest pain Additional Impressions: Bradycardia Diarrhea Disposition: 01 HOME / SELF CARE / HOMELESS Condition: Stable e-Prescriptions Losartan Potassium (Losartan Potassium) 25 Mg Tab 1 TAB PO DAILY, #90 TAB 5 Refills Prov: KEVAN LOREDO MD 09/20/24 Discharged With: Self Critical Care Note Critical Care Time?: No Stability Stability form required: No Heart Score Heart Score: Heart Score Response (Comments) Value History Moderate Suspicious 1 EKG Repolarization Disturb 1 Age >65 2 Risk Factors >3 or Hx ASHD 2 Troponin Normal limit 0 Total 6 I personally scribed for KEVAN LOREDO MD ([email or web address]) on 09/20/24 at 20:18. Electronically submitted by Berhane Pineda ([facility]). I personally scribed for KEVAN LOREDO MD ([email or web address]) on 09/20/24 at 21:45. Electronically submitted by Berhane Pineda ([facility]). I personally scribed for KEVAN LOREDO MD ([email or web address]) on 09/20/24 at 22:32. Electronically submitted by Berhane Pineda ([facility]). KEVAN LOREDO MD Sep 20, 2024 20:18
[2024-09-20 20:28] LABS: Basophils # (auto) 0.1 10 ^3/uL (0-0.2); Basophils % (auto) 0.7 % (0.0-2.0); Eosinophils # (auto) 0.2 10 ^3/uL (0-0.8); Eosinophils % (auto) 2.3 % (0.0-7.0); Hematocrit 47.7 % (36.0-46.0); Hemoglobin 15.8 g/dL (12.2-16.2); Lymphocytes # (auto) 3.7 10 ^3/uL (0.4-5.4); Lymphocytes % (auto) 36.4 % (10.0-50.0); Mean Corpuscular Hemoglobin 31.8 pg (28.0-32.0); Mean Corpuscular Hgb Conc. 33.2 g/dL (32.0-36.0); Mean Corpuscular Volume 95.7 fL (80.0-100.0); Monocytes # (auto) 0.6 10 ^3/uL (0-1.3); Monocytes % (auto) 5.7 % (0.0-12.0); Neutrophils # (auto) 5.5 10 ^3/uL (1.6-8.6); Neutrophils % (auto) 54.9 % (37.0-80.0); Nucleated Red Blood Cells % 0.1 %; Platelet Count (auto) 204 10^3/uL (140-450); Red Blood Cells 4.98 10^6/uL (4.0-5.20); Red Cell Distribution Width 14.1 % (11.8-14.3)
[2024-09-20 20:47] LABS: Alanine Aminotransferase 34 U/L (7-40); Alkaline Phosphatase 87 U/L (46-116); Anion Gap 9 (5-15); Aspartate Aminotransferase 22 U/L (13-40); BUN/Creatinine Ratio 26.2 (10.0-20.0); Bilirubin, Total 0.7 mg/dL (0.2-1.0); Blood Urea Nitrogen 22 mg/dL (9-23); Calcium 10.3 mg/dL (8.7-10.4); Carbon Dioxide 26 mmol/L (20-31); Chloride 105 mmol/L (98-107); Potassium 3.7 mmol/L (3.5-5.1); Sodium 140 mmol/L (136-145); Total Protein 7.7 g/dL (5.7-8.2)
--- NOTE | 2024-09-20 21:27 | DVH ---
CHEST RADIOGRAPH Indication: chest pain Technique: Single frontal view of the chest was obtained Comparison: 09/30/2021 FINDINGS: Lines and Tubes: None Lungs: No focal consolidation. Pleura: No effusion. No pneumothorax. Cardiomediastinal contours: Unremarkable Bones: No acute osseous abnormality. IMPRESSION: 1. No acute cardiopulmonary disease. HS:Y
[2024-09-20 21:33] LABS: Albumin 5.1 g/dL (3.2-4.8); Glucose 125 mg/dL (74-106)
[2024-09-20] MEDS: LOPERAMIDE HCL 2 MG CAP/TAB PO ONE (21:47)
[2024-09-20] MEDS: SODIUM CHLORIDE 0.9% 1,000 ML IV ONE (22:50)
[2024-09-20] MEDS ORDERED: LOSA-533 PO (22:54)
[2024-09-21 00:16] VITALS: BP 132/37; PULSE 52; RESP 18; TEMP 97.7; O2SAT 97
--- NOTE | 2024-09-22 11:56 | ECG ---
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
== END 2024-09-21 02:37 | disposition home or self-care (01) ==
LOC: EDBD 20:01 → ER 20:01
DX: R07.89 Other chest pain (principal); R00.1 Bradycardia, unspecified; R19.7 Diarrhea, unspecified; I11.0 Hypertensive heart disease with heart failure; I50.9 Heart failure, unspecified; E11.9 Type 2 diabetes mellitus without complications; I25.2 Old myocardial infarction; Z79.84 Long term (current) use of oral hypoglycemic drugs; Z79.899 Other long term (current) drug therapy; Z86.718 Personal history of other venous thrombosis and embolism
CPT/HCPCS: 36415; 71045; 80053; 84484; 85025; 93005; 96360; 99285; J7030